=== PATIENT | male | born 1965 | race Caucasian/White ===

== ENCOUNTER 2024-05-09 18:21 | Emergency (ER) | payer BC, SELFPAY ==
--- NOTE | 2024-05-09 18:53 | CRLHL7_ITS ---
For Patients: As a result of the Century Cures Act, medical imaging exams and procedure reports are released immediately into your electronic medical record. You may view this report before your referring provider. If you have questions, please contact your health care provider. INDICATION: Chest tightness TECHNIQUE: Chest 2 views. COMPARISON: None. FINDINGS/IMPRESSION: No focal consolidation, effusion or pneumothorax. Cardiac size is within normal limit without pulmonary edema. No acute osseous abnormality. Dictated by Keith Cornejo MD @ 05/09/2024 7:38:55 PM (Electronically Signed)
[2024-05-09 19:08] VITALS: BP 153/84; PULSE 94; RESP 16; TEMP 36.2; O2SAT 98; BMI 29.4
--- OUTSIDE RECORDS SUMMARY | 2024-05-09 20:22 | XMS_ITS | Referral Summary ---
Author Organization [place] Address Formerly [facility] [place] [address] Care Team Providers Care Sample Finisher Name Role Phone Lon Kirk PA-C Unavailable [phone] Lon Kirk PA-C Primary Care Provider [phone] Cristina Goel OD Unavailable Cristina Goel OD Unavailable [phone] Encounters Date Type Department Care Team Description 04/11/2024 Travel 04/11/2024 11:30 AM PMO CONSULTANT Office Visit [address] [place] [address] Cristina Goel, ALEX Type 2 diabetes mellitus without retinopathy (H) (Primary Dx); Type 2 diabetes mellitus with diabetic polyneuropathy, without long-term current use of insulin (H); Meibomian gland dysfunction; Hyperopia of both eyes with astigmatism; Presbyopia from Last 3 Months Allergies Active Allergy Reactions Criticality Noted Date Comments No Known Drug Allergy 10/10/2007 Medications blood glucose monitoring (ARTHUR CONTOUR NEXT MONITOR) meter device kitIndications:T ype 2 diabetes mellitus with diabetic polyneuropathy, unspecified jail insulin use status Use to test blood sugar 2-3 times daily or as directed. Ok to substitute alternative if insurance prefers. 1 kit 8 Active blood glucose monitoring (ARTHUR MICROLET) lancetsIndicatio ns:Type 2 diabetes mellitus with diabetic polyneuropathy, unspecified jail insulin use status Use to test blood sugar 2 times daily or as directed. Ok to substitute alternative if insurance prefers. 100 each 11 8 Active aspirin (ASA) 81 MG tablet Take 1 tablet (81 mg) by mouth daily 9 Active blood glucose (ARTHUR CONTOUR NEXT) test stripIndications :Type 2 diabetes mellitus with diabetic polyneuropathy, without long-term current use of insulin (H) Use to test blood sugar 2-3 times daily or as directed. Ok to substitute alternative if insurance prefers. 100 strip 3 9 Active atorvastatin (LIPITOR) 10 MG tabletIndication s:Type 2 diabetes mellitus with diabetic polyneuropathy, without long-term current use of insulin (H),Hyperlipidem ia LDL goal <100 Take 1 tablet (10 mg) by mouth daily 90 tablet 3 4 Active losartan (COZAAR) 100 MG tabletIndication s:Hypertension goal BP (blood pressure) < 140/90 Take 1 tablet (100 mg) by mouth daily 90 tablet 3 4 Active metFORMIN (GLUCOPHAGE XR) 500 MG 24 hr tabletIndication s:Type 2 diabetes mellitus with diabetic polyneuropathy, without long-term current use of insulin (H) TAKE 2 TABLETS(1000 MG) BY MOUTH TWICE DAILY WITH MEALS 360 tablet 4 Active Active Problems Problem Noted Date Diagnosed Date Hyperlipidemia LDL goal <100 10/24/2018 Hypertension goal BP (blood pressure) < 140/90 0 08/24/2018 Type 2 diabetes mellitus with diabetic polyneuro jakob 06/08/2017 CARDIOVASCULAR SCREENING; LDL GOAL LESS THAN 160 06/07/2017 Family history of ischemic heart disease 018 Immunizations Name Administration Dates Next Due COVID-19 12+ (Pfizer) 05/01/2023 COVID-19 Bivalent 12+ (Pfizer) 05/10/2022 COVID-19 MONOVALENT 12+ (Pfizer) 08/11/2020,06/24 Hepatitis B, Adult 05/01/2023 Influenza Vaccine 18-64 (Flublok) 2022,01/04/2021,02/11/2019,2017 Influenza Vaccine >6 months,quad, PF 06/06/2017, 02/24/2010,02/01/2008 Pneumococcal 20 valent Conju gate (Prevnar 20) 05/01/2023 Pneumococcal 23 valent 01/04/2021 TD,PF 7+ (Tenivac) 04/25/1999 TDAP Vaccine (Adacel) 10/18/2019,02/24/2010 Social History Tobacco Use Types Packs/Day Years Used Date Smoking Tobacco: Never Smokeless Tobacco: Former Chew Quit: 05/14/2022 Tobacco Cessation:Counseling Given: Not Answered Alcohol Use Standard Drinks/Week Comments Yes 0 (1 standard drink = 0.6 oz pure alcohol) social. no alcohol in house; 3 beers with sports. PHQ-2 Answer Date Recorded PHQ-2 Score 0 05/01/2023 Adolescent Education Answer Date Record ed Getting School Help Needed Not on file 02/06 Food Insecurity Answer Date Recorded Within the past 12 months, d id you worry that your food would run out before you got money to buy more? No 05/01/2023 Within the past 12 months, d id the food you bought just not last and you didn t have money to get more? No 05/01/2023 Housing Stability Answer Date Recorded Do you have housing? (Housin g is defined as stable permanent housing and does not include staying ouside in a car, in a tent, in an abandoned building, in an overnight prison, or couch-surfing.) Yes 05/01/2023 Are you worried about losing your housing? No 05/01/2023 Financial Resource Strain Answer Date R ecorded Within the past 12 months, h ave you or your family members you live with been unable to get utilities (heat, electricity) when it was really needed? No 05/01/2023 Transportation Needs Answer Date Record ed Within the past 12 months, h as lack of transportation kept you from medical appointments, getting your medicines, non-medical meetings or appointments, work, or from getting things that you need? No 05/01/2023 Interpersonal Safety Answer Date Record ed Do you feel physically and e motionally safe where you currently live? Yes 05/01/2023 Within the past 12 months, h ave you been hit, slapped, kicked or otherwise physically hurt by someone? No 05/01/2023 Within the past 12 months, h ave you been humiliated or emotionally abused in other ways by your partner or ex-partner? No 05/01/2023 Sex and Gender Information Value Date Recorded Sex Assigned at Male 12/30/2021 8:08 AM CDT Legal Sex Male 3:36 AM PMO CONSULTANT Gender Identity Male 01/01/2021 4:50 PM CDT Sexual Orientation Straight 01/01/2021 4: 50 PM CDT Last Filed Vital Signs Vital Sign Reading Time Taken Comments Blood Pressure 133/88 05/01/2023 10:47 AM PMO CONSULTANT Pulse 80 05/01/2023 10:47 AM PMO CONSULTANT Temperature 36.7 C (98 F) 05/01/2023 10:47 AM PMO CONSULTANT Respiratory Rate 22 05/01/2023 10:4 7 AM PMO CONSULTANT Oxygen Saturation 99% 05/01/2023 10: 47 AM PMO CONSULTANT Inhaled Oxygen Concentration - - Weight 110.6 kg (243 lb 14.4 oz) 2023 10:47 AM PMO CONSULTANT Height 190.5 cm (6' 3) 05/01/2023 10:4 7 AM PMO CONSULTANT Body Mass Index 30.49 05/01/2023 10:47 AM PMO CONSULTANT Plan of Treatment Not on file Procedures Procedure Name Priority Date/Time Associated Diagnosis Comments FL REFRACTION Routine 04/11/2024 12:07 PM PMO CONSULTANT Hyperopia of both eyes with astigmatism Presbyopia EYE EXAM (SIMPLE-NONBILLABLE) Routine 04/11/2024 12:07 PM PMO CONSULTANT Type 2 diabetes mellitus with diabetic polyneuropathy, without long-term current use of insulin (H) Type 2 diabetes mellitus without retinopathy (H) ALBUMIN RANDOM URINE QUANTITATIVE Routine 05/01/2023 11:29 AM PMO CONSULTANT Type 2 diabetes mellitus with diabetic polyneuropathy, without long-term current use of insulin (H) LIPID REFLEX TO DIRECT LDL PANEL Routine 05/01/2023 11:19 AM PMO CONSULTANT Type 2 diabetes mellitus with diabetic polyneuropathy, without long-term current use of insulin (H) BASIC METABOLIC PANEL Routine 05/01/2023 11:19 AM PMO CONSULTANT Type 2 diabetes mellitus with diabetic polyneuropathy, without long-term current use of insulin (H) HEMOGLOBIN A1C Routine 05/01/2023 11:19 AM PMO CONSULTANT Type 2 diabetes mellitus with diabetic polyneuropathy, without long-term current use of insulin (H) HEPATITIS C SCREEN REFLEX TO HCV RNA QUANT AND GENOTYPE Routine 01/04/2021 10:41 AM CDT Need for hepatitis C screening test HIV ANTIGEN ANTIBODY COMBO Routine 04/02/2018 9:01 AM PMO CONSULTANT Encounter for screening for HIV COLONOSCOPY Routine 07/06/2017 10:07 AM CDT from Last 3 Months or Most Recently Relevant to Health Maintenance Results * Albumin Random Urine Quantitative with Creat Ratio (05/01/2023 11:29 AM PMO CONSULTANT) Creatinine Urine mg/dL 196.0 mg/dL 05/02/2023 1:28 AM PMO CONSULTANT [facility] Comment:The reference ranges have not been established in urine creatinine. The results should be integrated into the clinical context for interpretation. Albumin Urine mg/L <12.0 mg/L 2023 1:28 AM PMO CONSULTANT [facility] Comment:The reference ranges have not been established in urine albumin. The results should be integrated into the clinical context for interpretation. Albumin Urine mg/g Cr 05/02/2023 1:28 AM PMO CONSULTANT [facility] Comment: Unable to calculate, urine albumin and/or urine creatinine is outside detectable limits. Microalbuminuria is defined as an albumin:creatinine ratio of 17 to 299 for males and 25 to 299 for females. A ratio of albumin:creatinine of 300 or higher is indicative of overt proteinuria. Due to biologic variability, positive results should be confirmed by a second, first-morning random or 24-hour timed urine specimen. If there is discrepancy, a third specimen is recommended. When 2 out of 3 results are in the microalbuminuria range, this is evidence for incipient nephropathy and warrants increased efforts at glucose control, blood pressure control, and institution of therapy with an bzrdlmhatqg-khkqtsbiof-nrxfoq (KAYLEEN) inhibitor (if the patient can tolerate it). Urine URINE SPECIMEN / Unknown Non-blood Collection / Unknown 05/01/2023 11:29 AM PMO CONSULTANT 05/01/2023 11:29 AM PMO CONSULTANT us Lon Kirk PA-C LAB - URINE ORDERABLES Final R esult [facility] [place] [facility] [address] [facility] [address], [address] [place] [address], [facility] [phone] * Lipid panel reflex to direct LDL Fasting (05/01/2023 11:19 AM PMO CONSULTANT) Cholesterol 189 <200 mg/dL 05/01/2023 9:52 PM PMO CONSULTANT [facility] Triglycerides 61 <150 mg/dL 05/01/2023 9:52 PM PMO CONSULTANT [facility] Direct Measure HDL 86 >=40 mg/dL 2023 9:52 PM PMO CONSULTANT [facility] LDL Cholesterol Calculated 91 <=100 mg/dL 05/01/2023 9:52 PM PMO CONSULTANT [facility] Non HDL Cholesterol 103 <130 mg/dL 05/01/2023 9:52 PM PMO CONSULTANT [facility] Patient Fasting > 8hrs? Yes 05/01/2023 9:52 PM PMO CONSULTANT [facility] Blood BLOOD SPECIMEN / Unknown Venipuncture / Unknown 05/01/2023 11:19 AM PMO CONSULTANT 05/01/2023 11:19 AM PMO CONSULTANT Narrative [facility] - 05/01/2023 9:52 PM PMO CONSULTANT Cholesterol Desirable: <200 mg/dL Triglycerides Normal: Less than 150 mg/dL Borderline High: 150-199 mg/dL High: 200-499 mg/dL Very High: Greater than or equal to 500 mg/dL Direct Measure HDL Female: Greater than or equal to 50 mg/dL Male: Greater than or equal to 40 mg/dL LDL Cholesterol Desirable: <100mg/dL Above Desirable: 100-129 mg/dL Borderline High: 130-159 mg/dL High: 160-189 mg/dL Very High: >= 190 mg/dL Non HDL Cholesterol Desirable: 130 mg/dL Above Desirable: 130-159 mg/dL Borderline High: 160-189 mg/dL High: 190-219 mg/dL Very High: Greater than or equal to 220 mg/dL us Lon Kirk PA-C LAB - BLOOD ORDERABLES Final R esult [facility] [place] [facility] [address] [facility] [address], [address] [place] [address] [phone] * (ABNORMAL) Hemoglobin A1c (05/01/2023 11:19 AM PMO CONSULTANT) Hemoglobin A1C 6.7(H) 0.0 - 5.6 % 05/01/2023 11:30 AM PMO CONSULTANT [facility] Comment: Normal <5.7% Prediabetes 5.7-6.4% Diabetes 6.5% or higher Note: Adopted from ADA consensus guidelines. Blood BLOOD SPECIMEN / Unknown Venipuncture / Unknown 05/01/2023 11:19 AM PMO CONSULTANT 05/01/2023 11:19 AM PMO CONSULTANT us Lon Kirk PA-C LAB - BLOOD ORDERABLES Final R esult [facility] [place] [facility] [address] [facility] (no room number, 1st floor of clinic) [place] [address] [phone] * (ABNORMAL) BASIC METABOLIC PANEL (05/01/2023 11:19 AM PMO CONSULTANT) Sodium 139 135 - 145 mmol/L 05/01/2023 9:52 PM PMO CONSULTANT [facility] Comment:Reference intervals for this test were updated on 01/17/2023 to more accurately reflect our healthy population. There may be differences in the flagging of prior results with similar values performed with this method. Interpretation of those prior results can be made in the context of the updated reference intervals. Potassium 4.4 3.4 - 5.3 mmol/L 05/01/2023 9:52 PM PMO CONSULTANT [facility] Chloride 101 98 - 107 mmol/L 05/01/2023 9:52 PM PMO CONSULTANT [facility] Carbon Dioxide (CO2) 27 22 - 29 mmol/L 05/01/2023 9:52 PM PMO CONSULTANT [facility] Anion Gap 11 7 - 15 mmol/L 05/01/2023 9:52 PM PMO CONSULTANT [facility] Urea Nitrogen 17.5 6.0 - 20.0 mg/dL 05/01/2023 9:52 PM PMO CONSULTANT [facility] Creatinine 0.89 0.67 - 1.17 mg/dL 05/01/2023 9:52 PM PMO CONSULTANT [facility] GFR Estimate >90 >60 mL/min/1. 73m2 05/01/2023 9:52 PM PMO CONSULTANT [facility] Calcium 9.6 8.6 - 10.0 mg/dL 05/01/2023 9:52 PM PMO CONSULTANT [facility] Glucose 152(H) 70 - 99 mg/dL 05/01/2023 9:52 PM PMO CONSULTANT [facility] Blood BLOOD SPECIMEN / Unknown Venipuncture / Unknown 05/01/2023 11:19 AM PMO CONSULTANT 05/01/2023 11:19 AM PMO CONSULTANT Lon Kirk PA-C LAB - BLOOD ORDERABLES Final R esult [facility]ATORY [facility] [place] [facility] [address] [facility], [address] [place] [address], [place] [phone] * Hepatitis C Screen Reflex to HCV RNA Quant and Genotype (01/04/2021 10:41 AM CDT) Hepatitis C Antibody Nonreactive Nonreactive 01/05/2021 11:33 AM CDT [facility] Blood STRUCTURE OF RIGHT UPPER LIMB / Unknown Venipuncture / Unknown 01/04/2021 10:41 AM CDT 01/04/2021 10:41 AM CDT Narrative [facility] - 01/05/2021 11:33 AM CDT Assay performance characteristics have not been established for newborns, infants, and children. Lon Kirk PA-C LAB - BLOOD ORDERABLES Final R esult [facility] [address] [facility], [address] [place] [address], [place] [phone] * HIV Antigen Antibody Combo (04/02/2018 9:01 AM PMO CONSULTANT) HIV Antigen Antibody Combo Nonreactive NR^Nonrea ctive 04/02/2018 10:18 PM PMO CONSULTANT [facility] Comment:HIV-1 p24 Ag & HIV-1 /HIV-2 Ab Not Detected Blood specimen (specimen) 04/02/2018 9:01 AM PMO CONSULTANT 04/02/2018 9:02 AM PMO CONSULTANT us Kassandra Diaz MD LAB - BLOOD ORDERABLES Final Res ult [facility] [address] [place] [address] * COLONOSCOPY (07/06/2017 10:07 AM CDT) COLONOSCOPY [facility] Patient Name: Kaiden Joel Long Procedure Date: 07/06/2017 10:07 AM Date of : 1965 Admit Type: Outpatient Age: 52 Gender: Male Attending MD: Jonny Lal MD Total Sedation Time: __16___minutes continuous bedside 1:1 Instrument Name: 133 Procedure: Colonoscopy Indications: Screening for colorectal malignant neoplasm Providers: Jonny Lal MD (Doctor) Referring MD: Kassandra Diaz MD (Referring MD) Medicines: Midazolam 3 mg IV, Fentanyl 150 micrograms IV Complications: No immediate complications. Procedure: Pre-Anesthesia Assessment: - Prior to the procedure, a History and Physical was performed, and patient medications and allergies were reviewed. The patient is competent. The risks and benefits of the procedure and the sedation options and risks were discussed with the patient. All questions were answered and informed consent was obtained. Patient identification and proposed procedure were verified by the physician in the procedure room. Mental Status Examination: alert and oriented. Airway Examination: normal oropharyngeal airway and neck mobility. Respiratory Examination: clear to auscultation. CV Examination: normal. Prophylactic Antibiotics: The patient does not require prophylactic antibiotics. Prior Anticoagulants: The patient has taken no previous anticoagulant or antiplatelet agents. ASA Grade Assessment: I - A normal, healthy patient. After reviewing the risks and benefits, the patient was deemed in satisfactory condition to undergo the procedure. The anesthesia plan was to use moderate sedation / analgesia (conscious sedation). Immediately prior to administration of medications, the patient was re-assessed for adequacy to receive sedatives. The heart rate, respiratory rate, oxygen saturations, blood pressure, adequacy of pulmonary ventilation, and response to care were monitored throughout the procedure. The physical status of the patient was re-assessed after the procedure. After obtaining informed consent, the colonoscope was passed under direct vision. Throughout the procedure, the patient's blood pressure, pulse, and oxygen saturations were monitored continuously. The Olympus Peds Colonoscope Model #[id number]-H190L, [place]#[id number], SN#[id number] was introduced through the anus and advanced to the cecum, identified by appendiceal orifice and ileocecal valve. The colonoscopy was performed without difficulty. The patient tolerated the procedure well. The quality of the bowel preparation was good. Findings: The perianal and digital rectal examinations were normal. The entire examined colon appeared normal on direct and retroflexion views. Impression: - The entire examined colon is normal on direct and retroflexion views. - No specimens collected. Recommendation: - Repeat colonoscopy in 10 years for screening purposes. Procedure Code(s): --- Professional --- G0121, Colorectal cancer screening; colonoscopy on individual not meeting criteria for high risk Diagnosis Code(s): --- Professional --- Z12.11, Encounter for screening for malignant neoplasm of colon CPT copyright 2016 [employer]. All rights reserved. The codes documented in this report are preliminary and upon patent litigation associate review may be revised to meet current compliance requirements. Electronically signed by Jonny Lal MD __ Jonny Lal MD 07/06/2017 10:45:06 AM I was physically present for the entire viewing portion of the exam. Jonny Lal MD Number of Addenda: 0 Note Initiated On: 07/06/2017 10:07 AM Procedure Date: 07/06/2017 10:07:54 AM Scope Withdrawal Time: 0 hours 7 minutes 20 seconds Total Procedure Duration: 0 hours 12 minutes 27 seconds Estimated Blood Loss: Scope In: 10:29:35 AM Scope Out: 10:42:02 AM RADIOLOGY RESULTS 07/06/2017 10:0 7 AM CDT Kassandra Diaz MD PROCEDURES Final Result RADIOLOGY RESULTS from Last 3 Months or Most Recently Relevant to Health Maintenance Insurance [employer] [facility] [employer] [facility] * Guarantor: Kaiden Alves Account Type Relation to Patient Date of Phone Billing Address Medication Therapy Self 1965 [id number] [place] [id number] Care Teams Sample Finisher Relationship Specialty Start Date End Date Lon Kirk PA-C [address] [place] [address] PCP - General Physician Lacing Cutter 09/23/19 Lon Kirk PA-C [address] [place] [address] Assigned PCP 03/31/19 Cristina Goel OD [address] [place] [address] [place] [address] MD Ophthalmology 02/12/24 [place] [address] [place] [address] [place] [address] Assigned Surgical Provider 04/15/24
--- OUTSIDE RECORDS SUMMARY | 2024-05-09 20:22 | XMS_ITS | Encounter Summary ---
Author Organization [place] Address [address] [place] [address]. [place] [address] Care Team Providers Care Box Office Manager Name Role Phone Lon Kirk PA-C Unavailable [phone] Lon Kirk PA-C Primary Care Provider [phone] Albino Lou PA-C Unavailable [phone] Ortiz Carvajal MD Unavailable + [phone] Albino Lou PA-C Unavailable [phone] Cristina Goel OD Unavailable [phone] Cristina Goel OD Unavailable [phone] Encounter Details Date Type Department Care Team (Late st Contact Info) Description 12/20/2021 [facility] Medical Advice [address] [address] Karen Leija Social History Tobacco Use Types Packs/Day Years Used Date Smoking Tobacco: Never Smokeless Tobacco: Current Chew Alcohol Use Standard Drinks/Week Comments Yes 0 (1 standard drink = 0.6 oz pure alcohol) social. no alcohol in house; 3 beers with sports. 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 Gender Identity Male 01/01/2021 4:50 PM CDT Sexual Orientation Straight 01/01/2021 4: 50 PM CDT documented as of this encounter Plan of Treatment Not on file documented as of this encounter Visit Diagnoses Not on filedocumented in this encounter Care Teams Box Office Manager Relationship Specialty Start Date End Date Lon Kirk PA-C [address] [place] [address] PCP - General Physician Sales Donor Recruitment Representative 09/23/19 Lon Kirk PA-C [address] [address] [place] [address] Assigned PCP 03/31/19 Albino Lou PA-C [address] [place] [address] Assigned Musculoskeletal Provider 06/25/22 05/17/23 Ortiz Carvajal MD [address] [place] [address] Assigned Heart and Vascular Provider 06/25/22 12/14/23 Albino Lou PA-C [address] [place] [address] Assigned Neuroscience Provider 05/18/23 01/14/24 Cristina Goel OD [address] [place] [address] [place] [address] Ophthalmology 02/12/24 Cristina Goel OD [address] [place] [address] [place] [address] Assigned Surgical Provider 04/15/24 documented as of this encounter
--- OUTSIDE RECORDS SUMMARY | 2024-05-09 20:22 | XMS_ITS | Encounter Summary ---
Author Organization [place] Address [address] [place] [address]. [place] [address] Care Team Providers Care Rn Concurrent Review Name Role Phone Lon Kirk PA-C Unavailable [phone] Lon Kirk PA-C Primary Care Provider [phone] Cristina Goel OD Unavailable [phone] Albino Lou PA-C Unavailable [phone] Ortiz Carvajal MD Unavailable + [phone] Albino Lou PA-C Unavailable [phone] Cristina Goel OD Unavailable [phone] Cristina Goel OD Unavailable [phone] Encounter Details Date Type Department Care Team (Late st Contact Info) Description 09/03/2020 [facility] Medical Advice [address] [address] Kim Kessler Social History Tobacco Use Types Packs/Day Years [...] AM CDT 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 Gender Identity Male 01/01/2021 4:50 PM CDT Sexual Orientation Straight 01/01/2021 4: 50 PM CDT documented as of this encounter Plan of Treatment Not on file documented as of this encounter Visit Diagnoses Not on filedocumented in this encounter Care Teams Rn Concurrent Review Relationship Specialty Start Date End Date Lon Kirk PA-C [address] [place] [address] PCP - General Physician Drug Abuse Social Worker 09/23/19 Lon Kirk PA-C [address] [address] [address] Assigned PCP 03/31/19 Cristina Goel OD [address] [place] [address] [place] [address] Assigned Surgical Provider 03/14/21 09/17/21 Albino Lou PA-C [address] [place] [address] Assigned Musculoskeletal Provider 06/25/22 05/17/23 Ortiz Carvajal MD [address] [place] [address] Assigned Heart and Vascular Provider 06/25/22 12/14/23 Albino Lou PA-C [address] [place] [address] Assigned Neuroscience Provider 05/18/23 01/14/24 Cristina Goel OD [address] [place] [address] [place] [address] Ophthalmology 02/12/24 Cristina Goel OD [address] [facility] [address], [place] [address] Assigned Surgical Provider 04/15/24 documented as of this encounter
--- OUTSIDE RECORDS SUMMARY | 2024-05-09 20:22 | XMS_ITS | Encounter Summary ---
Author Organization [place] Address [address] [place] [place] [address] Care Team Providers Care Mule Driver Name Role Phone Lon Kirk PA-C Unavailable [phone] Lon Kirk PA-C Primary Care Provider [phone] Cristina Goel OD Unavailable [phone] Encounter Details Date Type Department Care Team (Latest Contact Info) Description 04/11/2024 Travel Social History Tobacco Use Types Packs/Day Years Used Date Smoking Tobacco: Never Smokeless Tobacco: Former Chew Quit: 05/14/2022 Alcohol Use Standard Drinks/Week Comments Yes 0 [...] Answer Date Recorded Do you have housing? 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
--- OUTSIDE RECORDS SUMMARY | 2024-05-09 20:22 | XMS_ITS | Encounter Summary ---
Author Organization [place] Address [address] [facility] [place] [address] Care Team Providers Care Computer Game Tester Name Role Phone Lon Kirk PA-C Unavailable [phone] Lon Kirk PA-C Primary Care Provider [phone] Albino Lou PA-C Unavailable [phone] Ortiz Carvajal MD Unavailable + [phone] Albino Lou PA-C Unavailable [phone] Cristina Goel OD Unavailable [phone] Cristina Goel OD Unavailable [phone] Reason for Visit * Reason Comments Medication Refill Encounter Details Date Type Department Care Team (Late st Contact Info) Description 02/25/2023 Refill [facility] [address] [place] [address] Lon Kirk PA-C [address] [place] [address] Medication Refill Social History Tobacco Use Types Packs/Day Years Used Date Smoking Tobacco: Never Smokeless Tobacco: Former Chew Quit: 05/14/2022 Alcohol Use Standard Drinks/Week Comments Yes 0 (1 standard drink = 0.6 oz pure alcohol) social. no alcohol in house; 3 beers with sports. PHQ-2 Answer Date Recorded PHQ-2 Score 0 05/10/2022 Adolescent Education Answer Date Record ed Getting School Help Needed Not on file 02/06 Sex and Gender Information Value Date Recorded Sex Assigned at Male 12/30/2021 8:08 AM CDT Legal Sex Male 3:36 AM ACID PLANT HELPER Gender Identity Male 01/01/2021 4:50 PM CDT Sexual Orientation Straight 01/01/2021 4: 50 PM CDT documented as of this encounter Miscellaneous Notes * Telephone Encounter - Kassandra Armstrong RN - 02/27/2023 3:05 PM ACID PLANT HELPER Last refill, DM APPOINTMENT DUE, INFORM PT PLANT HELPER documented in this encounter Plan of Treatment Not on file documented as of this encounter Visit Diagnoses Diagnosis Hypertension goal BP (blood pressure) < 140/90 Unspecified essential hypertension Type 2 diabetes mellitus with diabetic polyneuropathy, without long-term current use of insulin (H) documented in this encounter Care Teams Computer Game Tester Relationship Specialty Start Date End Date Lon Kirk PA-C [address] [place] [address] PCP - General Physician Mixing Plant Dumper 09/23/19 Lon Kirk PA-C [address]687 [place] [address] Assigned PCP 03/31/19 Albino Lou PA-C [address] [place] [address] Assigned Musculoskeletal Provider 06/25/22 05/17/23 Ortiz Carvajal MD [address] [place] [address] Assigned Heart and Vascular Provider 06/25/22 12/14/23 Albino Lou PA-C [address] [place] [address] Assigned Neuroscience Provider 05/18/23 01/14/24 Cristina Goel OD [address] [facility] [place] [address] MD Ophthalmology 02/12/24 Cristina Goel OD [address] [facility] [place] [address] Assigned Surgical Provider 04/15/24 documented as of this encounter
--- OUTSIDE RECORDS SUMMARY | 2024-05-09 20:22 | XMS_ITS | Encounter Summary ---
Author Organization [place] Address [address] [facility] [place] [address] Care Team Providers Care Press Tender Smoke Signal Name Role Phone Lon Kirk PA-C Unavailable [phone] Lon Kirk PA-C Primary Care Provider [phone] Cristina Goel OD Unavailable [phone] Reason for Visit * Reason Comments Diabetic Eye Exam * Consultation (Routine: Next available opening) - Pending Review Specialty Diagnoses / Procedures Referred By Otto moreno Referred To Contact Ophthalmology Diagnoses Type 2 diabetes mellitus with diabetic polyneuropathy, without long-term current use of insulin (H) Lon Kirk PA-C [address] [place] [address] Phone: tel: fax: Referral ID Status Reason Start Date Expiration Date V isits Requested Visits Authorized [id number] Pending Review 12/15/2023 12/14/2024 1 1 Encounter Details Date Type Department Care Team (Late st Contact Info) Description 04/11/2024 11:30 AM GARMENT FOLDER Office Visit [facility] [address] [facility] [address] [place] [address] Cristina Goel, OD [address] [facility] [place] [address] Type 2 diabetes mellitus without retinopathy (H) (Primary Dx); Type 2 diabetes mellitus with diabetic polyneuropathy, without long-term current use of insulin (H); Meibomian gland dysfunction; Hyperopia of both eyes with astigmatism; Presbyopia Social History Tobacco Use Types Packs/Day Years [...] Answer Date Recorded Do you have housing? (Miguel jo is defined as stable permanent housing and does not include staying ouside in a car, in a tent, in an abandoned building, in an overnight assisted, or couch-surfing.) Yes 05/01/2023 Are you worried [...] AM CDT Legal Sex Male 3:36 AM GARMENT FOLDER Gender Identity Male 01/01/2021 4:50 PM CDT Sexual Orientation Straight 01/01/2021 4: 50 PM CDT documented as of this encounter Patient Instructions * Patient Instructions* Cristina Goel, OD - 04/11/2024 11:30 AM GARMENT FOLDER Patient Education Diabetes weakens the blood vessels all over the body, including the eyes. Damage to the blood vessels in the eyes can cause swelling or bleeding into part of the eye (called the retina). This is called diabetic retinopathy (XGP-xen-XZ-puh-thee). If not treated, this disease can cause vision loss or blindness. Symptoms may include blurred or distorted vision, but many people have no symptoms. It's important to see your eye doctor regularly to check for problems. Early treatment and good control can help protect your vision. Here are the things you can do to help prevent vision loss: 1. Keep your blood sugar levels under tight control. 2. Bring high blood pressure under control. 3. No smoking. 4. Have yearly dilated eye exams. Meibomian gland dysfunction or Posterior Blepharitis, is characterized by inflammation along both the uppper and lower eyelid margins. A single row of these glands is present in each lid with openings along the lid margins. It is often found in association with skin conditions such as rosacea and seborrheic dermatitis. Symptoms include: ?Red eyes ?Gritty or burning sensation ?Excessive tearing ?Itchy eyelids ?Red, swollen eyelids ?Crusting or matting of eyelashes in the morning ?Light sensitivity ?Blurred vision It is important to keep cosmetics from blocking these oil glands. If blocked, they do not excrete oil into the tear film, which causes the tears to evaporate quickly. This may result in watery eyes. There is also an increase of bacterial growth when the tear film is unstable, leading to further ocular surface inflammation. Treatment: 1. Warm compresses for 5-10 minutes twice daily 2. Keep the eyelid margins clean by using a commercial eye scrub or mild baby shampoo on a washcloth 1-2x daily 3. Use preservative free artificial tears 4-8x daily For warm compresses Moisten a washcloth with hot water, or microwave for 10 seconds, being careful to not get the clothtoo hot. Then put the washcloth onto your eyelids for 5 minutes. It will cool quickly so a rice pack or eyemask that can be heated and laid on top of the washcloth will help retain the heat. [place] 3 fatty acid supplements taken once to twice daily and artificial tears such as Soothe xp, Refresh optive , Retaine and systane balance are also an additional treatment to control inflammation and help soothe your eyes. Slight distance prescription Recommend no line bifocals ENT FOLDER ENT FOLDER * Attachments The following attachments cannot be sent through Care Everywhere. * Diabetic Retinopathy (Puerto Rican) * Presbyopia (Pu[place]ican) documented in this encounter Progress Notes * Cristina Goel, OD - 04/11/2024 11:30 AM CST Chief Complaint Patient presents with Diabetic Eye Exam Lab Results Component Value Date A1C 6.7 05/01/2023 A1C 6.4 03/08/2023 A1C 9.1 08/08/2022 A1C 8.5 05/10/2022 A1C 6.2 01/04/2021 A1C 5.8 01/07/2020 A1C 8.7 09/24/2019 A1C 6.2 02/11/2019 A1C 7.1 08/23/2018 A1C 6.0 02/22/2018 Pt states eyes feel off and does not know how to explain it Last Eye Exam: 2019 Dilated Previously: Yes, side effects of dilation explained today What are you currently using to see? readers Distance Vision Acuity: Satisfied with vision Near Vision Acuity: Satisfied with vision while reading and using computer with readers Eye Comfort: good Do you use eye drops? : No Miley Pagan - Lens Generating Machine Tender Medical, surgical and family histories reviewed and updated 04/11/2024. OBJECTIVE: See Ophthalmology exam ASSESSMENT: ICD-10-CM 1. Type 2 diabetes mellitus without retinopathy (H) E11.9 EYE EXAM (SIMPLE-NONBILLABLE) 2. Type 2 diabetes mellitus with diabetic polyneuropathy, without long-term current use of insulin (H) E11.42 Adult Eye Assisted Living Assistant Referral EYE EXAM (SIMPLE-NONBILLABLE) 3. Meibomian gland dysfunction H02.889 4. Hyperopia of both eyes with astigmatism H52.03 REFRACTION H52.203 5. Presbyopia H52.4 REFRACTION PLAN: Ongoing glucose control Warm compresses/ artificial tears as needed Progressive addition lens Kaiden Jonny Alves aware eye exam results will be sent to Lon Kirk. Cristina Goel OD ENT FOLDER documented in this encounter Plan of Treatment Not on file documented as of this encounter Procedures Procedure Name Priority Date/Time Associated Diagnosis Comments CA REFRACTION Routine 04/11/2024 12:07 PM GARMENT FOLDER Hyperopia of both eyes with astigmatism Presbyopia EYE EXAM (SIMPLE-NONBILLABLE) Routine 04/11/2024 12:07 PM GARMENT FOLDER Type 2 diabetes mellitus with diabetic polyneuropathy, without long-term current use of insulin (H) Type 2 diabetes mellitus without retinopathy (H) documented in this encounter Visit Diagnoses Diagnosis Type 2 diabetes mellitus without retinopathy (H)- Primary Type II or unspecified type diabetes mellitus without mention of complication, not stated as uncontrolled Type 2 diabetes mellitus with diabetic polyneuropathy, without long-term current use of insulin (H) Meibomian gland dysfunction Other disorders of eyelid Hyperopia of both eyes with astigmatism Presbyopia documented in this encounter Care Teams Press Tender Smoke Signal Relationship Specialty Start Date End Date Lon Kirk PA-C [address] [place] [address] PCP - General Physician Decision Analyst 09/23/19 Lon Kirk PA-C [address]1813 [place] [address] Assigned PCP 03/31/19 Cristina Goel, OD [address] [place] [address] [place] BAD[place]O [address] Ophthalmology 02/12/24 documented as of this encounter
--- OUTSIDE RECORDS SUMMARY | 2024-05-09 20:22 | XMS_ITS | Encounter Summary ---
Author Organization [place] Address [address] [place] [address]. [place] [address] Care Team Providers Care Payroll Assistant Name Role Phone Lon Kirk PA-C Unavailable [phone] Lon Kirk PA-C Primary Care Provider [phone] Cristina Goel OD Unavailable [phone] Albino Lou PA-C Unavailable [phone] Ortiz Carvajal MD Unavailable + [phone] Albino Lou PA-C Unavailable [phone] Cristina Goel OD Unavailable Cristina Goel OD Unavailable [phone] Encounter Details Date Type Department Care Team (Late st Contact Info) Description 08/12/2020 Documentation Only INTERFACED REPORT Unknown, Provider Social History Tobacco Use Types Packs/Day Years [...] AM CDT 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 Gender Identity Male 01/01/2021 4:50 PM CDT Sexual Orientation Straight 01/01/2021 4: 50 PM CDT documented as of this encounter Plan of Treatment Not on file documented as of this encounter Visit Diagnoses Not on filedocumented in this encounter Care Teams Payroll Assistant Relationship Specialty Start Date End Date Lon Kirk PA-C [address] [place] [address] PCP - General Physician Flame Burner 09/23/19 Lon Kirk PA-C [address] [place] [address] Assigned PCP 03/31/19 Cristina Goel OD [address] [place] [address] [place] [address] Assigned Surgical Provider 03/14/21 09/17/21 Albino Lou PA-C [address] [place] [address] Assigned Musculoskeletal Provider 06/25/22 05/17/23 Ortiz Carvajal MD [address] [place] [address] Assigned Heart and Vascular Provider 06/25/22 12/14/23 Albino Lou PA-C [address] [place] [address] Assigned Neuroscience Provider 05/18/23 01/14/24 Cristina Goel OD [address] [place] [address] [place] [address] Ophthalmology 02/12/24 Cristina Goel OD [address] [place] [address] [place] [address] Assigned Surgical Provider 04/15/24 documented as of this encounter
--- OUTSIDE RECORDS SUMMARY | 2024-05-09 20:22 | XMS_ITS | Encounter Summary ---
Author Organization [place] Address [address] [place] [address]. [place] [address] Care Team Providers Care Handle Rounder Operator Name Role Phone Lon Kirk PA-C Unavailable [phone] Lon Kirk PA-C Primary Care Provider [phone] Cristina Goel OD Unavailable [phone] Albino Lou PA-C Unavailable [phone] Ortiz Carvajal MD Unavailable + [phone] Albino Lou PA-C Unavailable [phone] Cristina Goel OD Unavailable Cristina Goel OD Unavailable [phone] Encounter Details Date Type Department Care Team (Late st Contact Info) Description 07/22/2020 Documentation Only INTERFACED REPORT Unknown, Provider Social [...] AM CDT 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 Gender Identity Male 01/01/2021 4:50 PM CDT Sexual Orientation Straight 01/01/2021 4: 50 PM CDT documented as of this encounter Plan of Treatment Not on file documented as of this encounter Visit Diagnoses Not on filedocumented in this encounter Care Teams Handle Rounder Operator Relationship Specialty Start Date End Date Lon Kirk PA-C [address] [place] [address] PCP - General Physician Drill Operator Pneumatic 09/23/19 Lon Kirk PA-C [address]500[address] [place] [address] Assigned PCP 03/31/19 Cristina Goel OD [address] [place] [address] [place]AD[place] [address] Assigned Surgical Provider 03/14/21 09/17/21 Albino Lou PA-C [address] [place] [address] Assigned Musculoskeletal Provider 06/25/22 05/17/23 Ortiz Carvajal MD [address] [place] [address] Assigned Heart and Vascular Provider 06/25/22 12/14/23 Albino Lou PA-C [address] [place] [address] Assigned Neuroscience Provider 05/18/23 01/14/24 Cristina Goel OD [address] [place] [address] [place] [address] Ophthalmology 02/12/24 Cristina Goel OD [address] [place] [address] [place] BAD[place] [address] Assigned Surgical Provider 04/15/24 documented as of this encounter
--- OUTSIDE RECORDS SUMMARY | 2024-05-09 20:22 | XMS_ITS | Encounter Summary ---
Author Organization [place] Address [address] [place] [place] [address] Care Team Providers Care Packaging Sales Representative Name Role Phone Lon Kirk PA-C Unavailable [phone] Lon Kirk PA-C Primary Care Provider [phone] Cristina Goel OD Unavailable [phone] Albino Lou PA-C Unavailable [phone] Ortiz Carvajal MD Unavailable + [phone] Albino Lou PA-C Unavailable [phone] Cristina Goel OD Unavailable [phone] Cristina Goel OD Unavailable [phone] Encounter Details Date Type Department Care Team (Late st Contact Info) Description 06/28/2020 [facility] [place] [facility] [address] [place] [address] Lon Kirk PA-C [address] [place] [address] Social History Tobacco Use Types Packs/Day Years [...] AM CDT 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 Gender Identity Male 01/01/2021 4:50 PM CDT Sexual Orientation Straight 01/01/2021 4: 50 PM CDT documented as of this encounter Plan of Treatment Not on file documented as of this encounter Visit Diagnoses Not on filedocumented in this encounter Care Teams Packaging Sales Representative Relationship Specialty Start Date End Date Lon Kirk PA-C [address] [place] [address] PCP - General Physician Aluminum Boats Assembler 09/23/19 Lon Kirk PA-C [address]45[address] [place] [address] Assigned PCP 03/31/19 Cristina Goel OD [address] [place] [address] [place]AD[place] [address] Assigned Surgical Provider 03/14/21 09/17/21 Albino Lou PA-C [address] [place] [address] Assigned Musculoskeletal Provider 06/25/22 05/17/23 Ortiz Carvajal MD [address] [place] [address] Assigned Heart and Vascular Provider 06/25/22 12/14/23 Albino Lou PA-C [address] [place] [address] Assigned Neuroscience Provider 05/18/23 01/14/24 Cristina Goel OD [address] [place] [address] [place] [address] Ophthalmology 02/12/24 Cristina Goel OD [address] [facility] [place] [address] Assigned Surgical Provider 04/15/24 documented as of this encounter
--- OUTSIDE RECORDS SUMMARY | 2024-05-09 20:22 | XMS_ITS | Encounter Summary ---
Author Organization [place] Address [address] [place] [address]. [place] [address] Care Team Providers Care Planner Intern Name Role Phone Lon Kirk PA-C Unavailable [phone] Lon Kirk PA-C Primary Care Provider [phone] Albino Lou PA-C Unavailable [phone] Ortiz Carvajal MD Unavailable + [phone] Albino Lou PA-C Unavailable [phone] Cristina Goel OD Unavailable [phone] Cristina Goel OD Unavailable [phone] Encounter Details Date Type Department Care Team (Late st Contact Info) Description 12/02/2022 [facility] Medical Advice [address] [address] Bryce Dunn MA Social History Tobacco Use Types Packs/Day Years Used Date Smoking Tobacco: Never Smokeless Tobacco: Former Chew Quit: 05/14/2022 Alcohol Use Standard Drinks/Week Comments Yes 0 (1 standard drink = 0.6 oz pure alcohol) social. no alcohol in house; 3 beers with sports. PHQ-2 Answer Date Recorded PHQ-2 Score 0 05/10/2022 Sex and Gender Information Value Date Recorded Sex Assigned at Male 12/30/2021 8:08 AM CDT Legal Sex Male 3:36 AM PRODUCTION SOUND MIXER Gender Identity Male 01/01/2021 4:50 PM CDT Sexual Orientation Straight 01/01/2021 4: 50 PM CDT documented as of this encounter Plan of Treatment Not on file documented as of this encounter Visit Diagnoses Not on filedocumented in this encounter Care Teams Planner Intern Relationship Specialty Start Date End Date Lon Kirk PA-C [address] [address] [place] [address] PCP - General Physician Global Chief Creative Officer 09/23/19 Lon Kirk PA-C [address] [address] [place] [address] Assigned PCP 03/31/19 Albino Lou PA-C [address] [place] [address] Assigned Musculoskeletal Provider 06/25/22 05/17/23 Ortiz Carvajal MD [address] [place] [address] Assigned Heart and Vascular Provider 06/25/22 12/14/23 Albino Lou PA-C [address] [place] [address] Assigned Neuroscience Provider 05/18/23 01/14/24 Cristina Goel, ALEX [address] [facility] [place] [address] Ophthalmology 02/12/24 Cristina Goel OD [address] [place] [address] Assigned Surgical Provider 04/15/24 documented as of this encounter
--- OUTSIDE RECORDS SUMMARY | 2024-05-09 20:22 | XMS_ITS | Encounter Summary ---
Author Organization [place] Address [address] [facility] [place] [address] Care Team Providers Care Package Wrapper Name Role Phone Lon Kirk PA-C Unavailable [phone] Lon Kirk PA-C Primary Care Provider [phone] Ortiz Carvajal MD Unavailable + [phone] Albino Lou PA-C Unavailable [phone] Cristina Goel OD Unavailable [phone] Reason for Visit * Reason Onset Date Comments Panel Management 12/14/2023 Encounter Details Date Type Department Care Team (Late st Contact Info) Description 12/14/2023 Telephone [facility] [address] [place] [address] Lon Kirk PA-C [address] [place] [address] Panel Management Social History Tobacco Use Types Packs/Day Years [...] in an abandoned building, in an overnight long term, or couch-surfing.) Yes 05/01/2023 Are you worried [...] AM CDT Legal Sex Male 3:36 AM NARCOTICS 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 Gender Identity Male 01/01/2021 4:50 PM CDT Sexual Orientation Straight 01/01/2021 4: 50 PM CDT documented as of this encounter Plan of Treatment Not on file documented as of this encounter Visit Diagnoses Not on filedocumented in this encounter Care Teams Package Wrapper Relationship Specialty Start Date End Date Lon Kirk PA-C [address] [place] [address] PCP - General Physician Anesthesia Resident 09/23/19 Lon Kirk PA-C [address]47[address] [place] [address] Assigned PCP 03/31/19 Ortiz Carvajal MD [address] [place] [address] Assigned Heart and Vascular Provider 06/25/22 12/14/23 Albino Lou PA-C [address] [place] [address] Assigned Neuroscience Provider 05/18/23 01/14/24 Cristina Goel OD [address] [facility] [place] [address] Ophthalmology 02/12/24 documented as of this encounter
--- OUTSIDE RECORDS SUMMARY | 2024-05-09 20:22 | XMS_ITS | Encounter Summary ---
Author Organization [place] Address [address] [facility] [place] [address] Care Team Providers Care Dye Range Operator Cloth Name Role Phone Lon Kirk PA-C Unavailable [phone] Lon Kirk PA-C Primary Care Provider [phone] Ortiz Carvajal MD Unavailable + [phone] Albino Lou PA-C Unavailable +[phone] Cristina Goel OD Unavailable [phone] Cristina Goel OD Unavailable [phone] Encounter Details Date Type Department Care Team (Late st Contact Info) Description 11/17/2023 [facility] [place] 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 Does patient need ortho referral for this? Angelica Matthews RN on 11/20/2023 at 11:04 AM documented in this encounter Plan of Treatment Not on file documented as of this encounter Visit Diagnoses Not on filedocumented in this encounter Care Teams Dye Range Operator Cloth Relationship Specialty Start Date End Date Lon Kirk PA-C [address] [place] [address] PCP - General Physician Post Form Remover 09/23/19 Lon Kirk PA-C 22272 [place] [place] [address] Assigned PCP 03/31/19 Ortiz Carvajal MD [address] [place] [address] Assigned Heart and Vascular Provider 06/25/22 12/14/23 Albino Lou PA-C [address] [place] [address] Assigned Neuroscience Provider 05/18/23 01/14/24 Cristina Goel OD [address] [place] [address] [place] [address] Ophthalmology 02/12/24 Cristina Goel OD [address] [place] [address] [place] [address] Assigned Surgical Provider 04/15/24 documented as of this encounter
--- OUTSIDE RECORDS SUMMARY | 2024-05-09 20:22 | XMS_ITS | Encounter Summary ---
Author Organization [place] Address [address] [facility] [place] [address] Care Team Providers Care Extension Service Supervisor Name Role Phone Lon Kirk PA-C Unavailable [phone] Lon Kirk PA-C Primary Care Provider [phone] Albino Lou PA-C Unavailable [phone] Ortiz Carvajal MD Unavailable + [phone] Albino Lou PA-C Unavailable +[phone] Cristina Goel OD Unavailable [phone] Cristina Goel OD Unavailable [phone] Encounter Details Date Type Department Care Team (Late st Contact Info) Description 12/19/2022 [facility] Medical Advice [facility] [address] [place] [address] Lon Kirk PA-C [address] [place] [address] Social History Tobacco Use Types [...] AM CDT 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 Gender Identity Male 01/01/2021 4:50 PM CDT Sexual Orientation Straight 01/01/2021 4: 50 PM CDT documented as of this encounter Plan of Treatment Not on file documented as of this encounter Visit Diagnoses Not on filedocumented in this encounter Care Teams Extension Service Supervisor Relationship Specialty Start Date End Date Lon Kirk PA-C [address] [address] [address] PCP - General Physician Operations Manager 09/23/19 Lon Kirk PA-C [address] [place] [address] Assigned PCP 03/31/19 Albino Lou PA-C [address] [place] [address] Assigned Musculoskeletal Provider 06/25/22 05/17/23 Ortiz Carvajal MD [address] [place] [address] Assigned Heart and Vascular Provider 06/25/22 12/14/23 Albino Lou PA-C [address] [place] [address] Assigned Neuroscience Provider 05/18/23 01/14/24 Cristina Goel OD [address] [place] [address] [place] [address] Ophthalmology 02/12/24 Cristina Goel OD [address] [place] [address] [place] [address] Assigned Surgical Provider 04/15/24 documented as of this encounter
--- OUTSIDE RECORDS SUMMARY | 2024-05-09 20:23 | XMS_ITS | Encounter Summary ---
Author Organization [place] Address [address] [facility] [place] [address] Care Team Providers Care Gelatin Maker Utility Name Role Phone Lon Kirk PA-C Unavailable [phone] Lon Kirk PA-C Primary Care Provider [phone] Cristina Goel OD Unavailable Albino Lou PA-C Unavailable +[phone] Ortiz Carvajal MD Unavailable + [phone] Albino Lou PA-C Unavailable +[phone] Cristina Goel OD Unavailable Cristina Goel OD Unavailable Reason for Visit * Reason Onset Date Comments Refill Request 06/06/2020 Encounter Details Date Type Department Care Team (Late st Contact Info) Description 06/06/2020 MyC Refill [facility] [address] [place] [address] Lon Kirk PA-C [address] [place] [address] Refill Request Social History Tobacco Use Types Packs/Day Years [...] AM CDT 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 Gender Identity Male 01/01/2021 4:50 PM CDT Sexual Orientation Straight 01/01/2021 4: 50 PM CDT documented as of this encounter Plan of Treatment Not on file documented as of this encounter Visit Diagnoses Diagnosis Type 2 diabetes mellitus with diabetic polyneuropathy, without long-term current use of insulin (H) documented in this encounter Care Teams Gelatin Maker Utility Relationship Specialty Start Date End Date Lon Kirk PA-C [address] [place] [address] PCP - General Physician Food And Beverage Cashier 09/23/19 Lon Kirk PA-C [address] [place] [address] Assigned PCP 03/31/19 Cristina Goel OD [address] [facility] [place] [address] Assigned Surgical Provider 03/14/21 09/17/21 Albino Lou PA-C [address] [place] [address] Assigned Musculoskeletal Provider 06/25/22 05/17/23 Ortiz Carvajal MD [address] [place] [address] Assigned Heart and Vascular Provider 06/25/22 12/14/23 Albino Lou PA-C [address] [place] [address] Assigned Neuroscience Provider 05/18/23 01/14/24 Cristina Goel, ALEX [address] [facility] [place] [address] MD Ophthalmology 02/12/24 Cristina Goel, ALEX [address] [facility] [place] [address] Assigned Surgical Provider 04/15/24 documented as of this encounter
--- OUTSIDE RECORDS SUMMARY | 2024-05-09 20:24 | XMS_ITS | Encounter Summary ---
Author Organization [place] Address [facility] [address] Care Team Providers Care Real Estate Underwriter Name Role Phone Lon Kirk PA-C Unavailable [phone] Lon Kirk PA-C Primary Care Provider [phone] Cristina Goel OD Unavailable [phone] Albino Lou PA-C Unavailable [phone] Ortiz Carvajal MD Unavailable + [phone] Albino Lou PA-C Unavailable +[phone] Cristina Goel OD Unavailable Cristina Goel OD Unavailable Encounter Details Date Type Department Care Team (Late st Contact Info) Description 01/06/2020 [facility] [address] [place] [address] Lon Kirk PA-C [address] [place] [address] Social History Tobacco Use Types [...] AM CDT 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 No / Unsure 01/07/2020 9:45 AM CDT documented as of this encounter Plan of Treatment Not on file documented as of this encounter Visit Diagnoses Not on filedocumented in this encounter Care Teams Real Estate Underwriter Relationship Specialty Start Date End Date Lon Kirk PA-C [address] [address] [address] PCP - General Physician Damage Assessor 09/23/19 Lon Kirk PA-C [address] [place] [place] [address] Assigned PCP 03/31/19 Cristina Goel OD [address] [facility] [place] [address] Assigned Surgical Provider 03/14/21 09/17/21 Albino Lou PA-C [address] [place] [address] Assigned Musculoskeletal Provider 06/25/22 05/17/23 Ortiz Carvajal MD [address] [place] [address] Assigned Heart and Vascular Provider 06/25/22 12/14/23 Albino Lou PA-C [address] [place] [address] Assigned Neuroscience Provider 05/18/23 01/14/24 Cristina Goel OD [address] [facility] [place] [address] MD Ophthalmology 02/12/24 Cristina Goel OD [address] [facility] [place] [address] Assigned Surgical Provider 04/15/24 documented as of this encounter
--- OUTSIDE RECORDS SUMMARY | 2024-05-09 20:24 | XMS_ITS | Encounter Summary ---
Author Organization [place] Address [address] [facility] [place] [address] Care Team Providers Care Slabber Name Role Phone Lon Kirk PA-C Unavailable [phone] Lon Kirk PA-C Primary Care Provider [phone] Cristina Goel OD Unavailable [phone] Albino Lou PA-C Unavailable +[phone] Ortiz Carvajal MD Unavailable + [phone] Albino Lou PA-C Unavailable [phone] Cristina Goel OD Unavailable Cirstina Goel OD Unavailable Reason for Visit * Reason Onset Date Comments other 02/19/2020 eye doctor recom mendation Encounter Details Date Type Department Care Team (Late st Contact Info) Description 02/19/2020 [facility] [place] [facility] [address] [place] [address] Lon Kirk PA-C [address] [place] [address] other (eye doctor recommendation) Social History Tobacco Use Types Packs/Day Years [...] AM CDT 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 documented in this encounter Plan of Treatment Not on file documented as of this encounter Visit Diagnoses Not on filedocumented in this encounter Care Teams Slabber Relationship Specialty Start Date End Date Lon Kirk PA-C [address] [address] [address] PCP - General Physician Kiln Maintenance 09/23/19 Lon Kirk PA-C [address] [place] [address] Assigned PCP 03/31/19 Cristina Goel OD [address] [facility] [place] [address] Assigned Surgical Provider 03/14/21 09/17/21 Albino Lou PA-C [address] [place] [address] Assigned Musculoskeletal Provider 06/25/22 05/17/23 Ortiz Carvajal MD [address] [place] [address] Assigned Heart and Vascular Provider 06/25/22 12/14/23 Albino Lou PA-C [address] [place] [address] Assigned Neuroscience Provider 05/18/23 01/14/24 Cristina Goel OD [address] [facility] [place] [address] MD Ophthalmology 02/12/24 Cristina Goel OD [address] [facility] [place] [address] Assigned Surgical Provider 04/15/24 documented as of this encounter
--- OUTSIDE RECORDS SUMMARY | 2024-05-09 20:24 | XMS_ITS | Encounter Summary ---
Author Organization [place] Address [address] [place] [address]. [place] [address] Care Team Providers Care Cooper Helper Name Role Phone Kassandra Diaz MD Primary Care Provider Unavailab Kassandra Miles MD Unavailable Unavailable Kassandra Diaz MD Unavailable Unavailable Lon Kirk PA-C Unavailable [phone] Lon Kirk PA-C Primary Care Provider [phone] Cristina Goel OD Unavailable Albino Lou PA-C Unavailable +[phone] Ortiz Carvajal MD Unavailable + [phone] Albino Lou PA-C Unavailable +[phone] Cristina Goel OD Unavailable Cristina Goel OD Unavailable Encounter Details Date Type Department Care Team (Late st Contact Info) Description 07/04/2017 [facility] [place] [address] [place] [address] Kassandra Diaz MD Social History Tobacco Use Types Packs/Day Years Used Date Smoking Tobacco: Never Smokeless Tobacco: Current Chew Alcohol Use Standard Drinks/Week Comments Yes 0 (1 standard drink = 0.6 oz pure alcohol) social. no alcohol in house; 3 beers with sports. 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 Gender Identity Male 01/01/2021 4:50 PM CDT Sexual Orientation Straight 01/01/2021 4: 50 PM CDT documented as of this encounter Plan of Treatment Not on file documented as of this encounter Visit Diagnoses Not on filedocumented in this encounter Care Teams Cooper Helper Relationship Specialty Start Date End Date Kassandra Diaz MD PCP - General Family Practice 06/12/17 09/22/19 Kassandra Diaz MD PCP - Assigned PCP 05/11/17 06/26/18 Lon Kirk PA-C [address] [place] [place] [address] PCP - General Physician Exhibits Manager 09/23/19 Kassandra Diaz MD Assigned PCP 05/11/17 03/30/19 Lon Kirk PA-C [address] [place] [address] Assigned PCP 03/31/19 Cristina Goel OD [address] [facility] [place] [address] Assigned Surgical Provider 03/14/21 09/17/21 Albino Lou PA-C [address] [place] [address]9035 Assigned Musculoskeletal Provider 06/25/22 05/17/23 Ortiz Carvajal MD [address] [place] [address] Assigned Heart and Vascular Provider 06/25/22 12/14/23 Albino Lou PA-C [address] [place] [address] Assigned Neuroscience Provider 05/18/23 01/14/24 Cristina Goel OD [address] [facility] [place] [address] MD Ophthalmology 02/12/24 Cristina Goel OD [address] [facility] [place] [address] Assigned Surgical Provider 04/15/24 documented as of this encounter
--- OUTSIDE RECORDS SUMMARY | 2024-05-09 20:24 | XMS_ITS | Encounter Summary ---
Author Organization [place] Address [address] [place] [address]. [place] [address] Care Team Providers Care Scheduling Analyst Name Role Phone Kassandra Diaz MD Primary Care Provider Unavailab Lon Mccollum PA-C Unavailable [phone] Lon Kirk PA-C Primary Care Provider [phone] Cristina Goel OD Unavailable Albino Lou PA-C Unavailable [phone] Ortiz Carvajal MD Unavailable + [phone] Albino Lou PA-C Unavailable +[phone] Cristina Goel OD Unavailable Cristina Goel OD Unavailable Encounter Details Date Type Department Care Team (Late st Contact Info) Description 09/19/2019 [facility] Medical Advice [address] [address] Kim Kessler Social History Tobacco Use Types Packs/Day Years Used Date Smoking Tobacco: Never Smokeless Tobacco: Current Chew Alcohol Use Standard Drinks/Week Comments Yes 0 (1 standard drink = 0.6 oz pure alcohol) social. no alcohol in house; 3 beers with sports. 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 Gender Identity Male 01/01/2021 4:50 PM CDT Sexual Orientation Straight 01/01/2021 4: 50 PM CDT documented as of this encounter Plan of Treatment Not on file documented as of this encounter Visit Diagnoses Not on filedocumented in this encounter Care Teams Scheduling Analyst Relationship Specialty Start Date End Date Kassandra Diaz MD PCP - General Family Practice 06/12/17 09/22/19 Lon Kirk PA-C [address] [place] [address] [address] PCP - General Physician Engineering Teacher 09/23/19 Lon Kirk PA-C 42709 [place] [address] Assigned PCP 03/31/19 Cristina Goel OD [address] [place] [address] [place] [address] Assigned Surgical Provider 03/14/21 09/17/21 Albino Lou PA-C [address] [place] [address] Assigned Musculoskeletal Provider 06/25/22 05/17/23 Ortiz Carvajal MD [address] [place] [address] Assigned Heart and Vascular Provider 06/25/22 12/14/23 Albino Lou PA-C [address] [place] [address] Assigned Neuroscience Provider 05/18/23 01/14/24 Cristina Goel OD [address] [place] [address] [place] [address] Ophthalmology 02/12/24 Cristina Goel OD [address] [facility] [place] [address] Assigned Surgical Provider 04/15/24 documented as of this encounter
--- OUTSIDE RECORDS SUMMARY | 2024-05-09 20:24 | XMS_ITS | Encounter Summary ---
Author Organization [place] Address [address] [place] [address]. [place] [address] Care Team Providers Care Junior Assistant Manager Name Role Phone Kassandra Diaz MD Primary Care Provider Unavailab Kassandra Miles MD Unavailable Unavailable Kassandra Diaz MD Unavailable Unavailable Lon Kirk PA-C Unavailable [phone] Lon Kirk PA-C Primary Care Provider [phone] Cristina Goel OD Unavailable Albino Lou PA-C Unavailable [phone] Ortiz Carvajal MD Unavailable + [phone] Albino Lou PA-C Unavailable +[phone] Cristina Goel OD Unavailable Cristina Goel OD Unavailable Encounter Details Date Type Department Care Team (Late st Contact Info) Description 09/11/2017 [facility] [place] [address] [address] Paty [address] [address] Social History Tobacco Use Types Packs/Day Years Used Date Smoking Tobacco: Never Smokeless Tobacco: Current Chew Alcohol Use Standard Drinks/Week Comments Yes 0 (1 standard drink = 0.6 oz pure alcohol) social. no alcohol in house; 3 beers with sports. 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 Gender Identity Male 01/01/2021 4:50 PM CDT Sexual Orientation Straight 01/01/2021 4: 50 PM CDT documented as of this encounter Plan of Treatment Not on file documented as of this encounter Visit Diagnoses Not on filedocumented in this encounter Care Teams Junior Assistant Manager Relationship Specialty Start Date End Date Kassandra Diaz MD PCP - General Family Practice 06/12/17 09/22/19 Kassandra Diaz MD PCP - Assigned PCP 05/11/17 06/26/18 Lon Kirk PA-C [address] [place] [address] PCP - General Physician Train Conductor 09/23/19 Kassandra Diaz MD Assigned PCP 05/11/17 03/30/19 Lon Kirk PA-C [address] [place] [address] Assigned PCP 03/31/19 Cristina Goel OD [facility] [place] [address] Assigned Surgical Provider 03/14/21 09/17/21 Albino Lou PA-C [address] [place] [address] Assigned Musculoskeletal Provider 06/25/22 05/17/23 Ortiz Carvajal MD [address] [place] [address] Assigned Heart and Vascular Provider 06/25/22 12/14/23 Albino Lou PA-C [address] [facility] [place] [address] Assigned Neuroscience Provider 05/18/23 01/14/24 Cristina Goel OD [address] [facility] [place] [address] MD Ophthalmology 02/12/24 Cristina Goel OD [address] [facility] [place] [address] Assigned Surgical Provider 04/15/24 documented as of this encounter
--- OUTSIDE RECORDS SUMMARY | 2024-05-09 20:24 | XMS_ITS | Encounter Summary ---
Author Organization [place] Address [address] [place] [address]. [place] [address] Care Team Providers Care Senior Java Programmer Analyst Name Role Phone Kassandra Diaz MD Primary Care Provider Unavailab Kassandra Miles MD Unavailable Unavailable Lon Kirk PA-C Unavailable [phone] Lon Kirk PA-C Primary Care Provider [phone] Cristina Goel OD Unavailable [phone] Albino Lou PA-C Unavailable [phone] Ortiz Carvajal MD Unavailable + [phone] Albino Lou PA-C Unavailable +[phone] Cristina Goel OD Unavailable [phone] Cristina Goel OD Unavailable [phone] Encounter Details Date Type Department Care Team (Latest Contact Info) Description 08/24/[place] [facility] [place] [address] [address] Kassandra Diaz MD Hypertension goal BP (blood pressure) < 140/90 (Primary Dx) Social History Tobacco Use Types Packs/Day Years [...] AM CDT 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 Would like BP medication change. Gina Sands RN Flex documented in this encounter Plan of Treatment Not on file documented as of this encounter Visit Diagnoses Diagnosis Hypertension goal BP (blood pressure) < 140/90- Primary Unspecified essential hypertension documented in this encounter Care Teams Senior Java Programmer Analyst Relationship Specialty Start Date End Date Kassandra Diaz MD PCP - General Family Practice 06/12/17 09/22/19 Lon Kirk PA-C [address] [address] [address] PCP - General Physician Roller Coaster Operator 09/23/19 Kassandra Diaz MD Assigned PCP 05/11/17 03/30/19 Lon Kirk PA-C [address] [address] [address] Assigned PCP 03/31/19 Cristina Goel OD [address] [facility] [place] [address] Assigned Surgical Provider 03/14/21 09/17/21 Albino Lou PA-C [address] [place] [address] Assigned Musculoskeletal Provider 06/25/22 05/17/23 Ortiz Carvajal MD [address] [place] [address] Assigned Heart and Vascular Provider 06/25/22 12/14/23 Albino Lou PA-C [address] [place] [address] Assigned Neuroscience Provider 05/18/23 01/14/24 Cristina Goel OD [address] [facility] [place] [address] Ophthalmology 02/12/24 Cristina Goel OD [address] [facility] [place] [address] Assigned Surgical Provider 04/15/24 documented as of this encounter
== END 2024-05-09 20:38 | disposition left against medical advice (07) ==
PROVIDERS: Emergency Provider Emergency Medicine Emergency Medical Services; Visit Provider Emergency Medicine Emergency Medical Services
DX: R00.2 Palpitations (principal); Z53.21 Procedure and treatment not carried out due to patient leaving prior to being seen by health care provider
CPT/HCPCS: 71046; 87631

== ENCOUNTER 2024-05-11 11:40 | Outpatient (CLI) | payer BC, SELFPAY | END 2024-05-11 11:41 | disposition home or self-care (01) | LOC: AMB 06-03 15:31 | PROVIDERS: Visit Provider Internal Medicine | DX: R42 Dizziness and giddiness (principal) | CPT/HCPCS: A0998 ==

== ENCOUNTER 2024-05-11 12:24 | Emergency (ER) | payer BC, SELFPAY ==
--- OUTSIDE RECORDS SUMMARY | 2024-05-11 12:27 | XMS_ITS | Continuity of Care Document ---
Author Name [email or web address] Address Unknown Organization Unknown Address Unknown Encounters FILTER APPLIED:Only known Encounters with Admission Date within the last 5 years Encounter Location Admission Discharge Billing Code Shell Fisherman Silvana jones Outpatient [facility] Outpatient [facility] Outpatient [facility]
--- OUTSIDE RECORDS SUMMARY | 2024-05-11 12:28 | XMS_ITS | Encounter Summary ---
Author Organization [place] Address [address] [facility] 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 Gender Identity Male 01/01/2021 4:50 PM CDT Sexual Orientation Straight 01/01/2021 4: 50 PM CDT documented as of this encounter Plan of Treatment Not on file documented as of this encounter Visit Diagnoses Not on filedocumented in this encounter Care Teams Maintenance Mechanic Helper Relationship Specialty Start Date End Date Lon Kirk PA-C [address] [place] [address] PCP - General Physician Professor Of Engineering 09/23/19 Lon Kirk PA-C [address]89[address] [place] [place] [address] Assigned PCP 03/31/19 Cristina Goel OD [address] [place] [address] [place] [address] Ophthalmology 02/12/24 documented as of this encounter
--- OUTSIDE RECORDS SUMMARY | 2024-05-11 12:28 | XMS_ITS | Referral Summary ---
Author Organization [place] Address Formerly [facility], later [facility] [place] [address] Care Team Providers Care Faculty I On Call Medical Assistant Name Role Phone Lon Kirk PA-C Unavailable [phone] Lon Kirk PA-C Primary Care Provider [phone] Cristina Goel OD Unavailable Cristina Goel OD Unavailable Encounters Date Type Department Care Team Description 04/11/2024 Travel 04/11/2024 11:30 AM GLUED WOOD TESTER Office Visit [address] [place] [address] Cristina Goel, ALEX Type 2 diabetes [...] 2 diabetes mellitus with diabetic polyneuropathy, unspecified chcf insulin use status Use to test blood sugar 2-3 times daily or as directed. Ok to substitute alternative if insurance prefers. 1 kit 8 Active blood glucose monitoring (ARTHUR MICROLET) lancetsIndicatio ns:Type 2 diabetes mellitus with diabetic polyneuropathy, unspecified chcf insulin use status Use to test blood [...] in an abandoned building, in an overnight snf, or couch-surfing.) Yes 05/01/2023 Are you worried [...] AM CDT Legal Sex Male 3:36 AM GLUED WOOD TESTER Gender Identity Male 01/01/2021 4:50 PM CDT Sexual Orientation Straight 01/01/2021 4: 50 PM CDT Last Filed Vital Signs Vital Sign Reading Time Taken Comments Blood Pressure 133/88 05/01/2023 10:47 AM GLUED WOOD TESTER Pulse 80 05/01/2023 10:47 AM GLUED WOOD TESTER Temperature 36.7 C (98 F) 05/01/2023 10:47 AM GLUED WOOD TESTER Respiratory Rate 22 05/01/2023 10:4 7 AM GLUED WOOD TESTER Oxygen Saturation 99% 05/01/2023 10: 47 AM GLUED WOOD TESTER Inhaled Oxygen Concentration - - Weight 110.6 kg (243 lb 14.4 oz) 2023 10:47 AM GLUED WOOD TESTER Height 190.5 cm (6' 3) 05/01/2023 10:4 7 AM GLUED WOOD TESTER Body Mass Index 30.49 05/01/2023 10:47 AM GLUED WOOD TESTER Plan of Treatment Not on file Procedures Procedure Name Priority Date/Time Associated Diagnosis Comments OR REFRACTION Routine 04/11/2024 12:07 PM GLUED WOOD TESTER Hyperopia of both eyes with astigmatism Presbyopia EYE EXAM (SIMPLE-NONBILLABLE) Routine 04/11/2024 12:07 PM GLUED WOOD TESTER Type 2 diabetes mellitus with diabetic polyneuropathy, without long-term current use of insulin (H) Type 2 diabetes mellitus without retinopathy (H) ALBUMIN RANDOM URINE QUANTITATIVE Routine 05/01/2023 11:29 AM GLUED WOOD TESTER Type 2 diabetes mellitus with diabetic polyneuropathy, without long-term current use of insulin (H) LIPID REFLEX TO DIRECT LDL PANEL Routine 05/01/2023 11:19 AM GLUED WOOD TESTER Type 2 diabetes mellitus with diabetic polyneuropathy, without long-term current use of insulin (H) BASIC METABOLIC PANEL Routine 05/01/2023 11:19 AM GLUED WOOD TESTER Type 2 diabetes mellitus with diabetic polyneuropathy, without long-term current use of insulin (H) HEMOGLOBIN A1C Routine 05/01/2023 11:19 AM GLUED WOOD TESTER Type 2 diabetes mellitus with diabetic polyneuropathy, without long-term current use of insulin (H) HEPATITIS C SCREEN REFLEX TO HCV RNA QUANT AND GENOTYPE Routine 01/04/2021 10:41 AM CDT Need for hepatitis C screening test HIV ANTIGEN ANTIBODY COMBO Routine 04/02/2018 9:01 AM GLUED WOOD TESTER Encounter for screening for HIV COLONOSCOPY Routine 07/06/2017 10:07 AM CDT from Last 3 Months or Most Recently Relevant to Health Maintenance Results * Albumin Random Urine Quantitative with Creat Ratio (05/01/2023 11:29 AM GLUED WOOD TESTER) Creatinine Urine mg/dL 196.0 mg/dL 05/02/2023 1:28 AM GLUED WOOD TESTER [facility] Comment:The reference ranges have not been established in urine creatinine. The results should be integrated into the clinical context for interpretation. Albumin Urine mg/L <12.0 mg/L 2023 1:28 AM GLUED WOOD TESTER [facility] Comment:The reference ranges have not been established in urine albumin. The results should be integrated into the clinical context for interpretation. Albumin Urine mg/g Cr 05/02/2023 1:28 AM GLUED WOOD TESTER [facility] Comment: Unable to calculate, urine [...] control, and institution of therapy with an gbogekcbbvz-gygudtmppk-mexayw (KAYLEEN) inhibitor (if the patient can tolerate it). Urine URINE SPECIMEN / Unknown Non-blood Collection / Unknown 05/01/2023 11:29 AM GLUED WOOD TESTER 05/01/2023 11:29 AM GLUED WOOD TESTER us Lon Kirk PA-C LAB - URINE ORDERABLES Final R esult [facility] [address] [facility] [address], [address] [place] [address], [facility] [phone] * Lipid panel reflex to direct LDL Fasting (05/01/2023 11:19 AM GLUED WOOD TESTER) Cholesterol 189 <200 mg/dL 05/01/2023 9:52 PM GLUED WOOD TESTER [facility] Triglycerides 61 <150 mg/dL 05/01/2023 9:52 PM GLUED WOOD TESTER [facility] Direct Measure HDL 86 >=40 mg/dL 2023 9:52 PM GLUED WOOD TESTER [facility] LDL Cholesterol Calculated 91 <=100 mg/dL 05/01/2023 9:52 PM GLUED WOOD TESTER [facility] Non HDL Cholesterol 103 <130 mg/dL 05/01/2023 9:52 PM GLUED WOOD TESTER [facility] Patient Fasting > 8hrs? Yes 05/01/2023 9:52 PM GLUED WOOD TESTER [facility] Blood BLOOD SPECIMEN / Unknown Venipuncture / Unknown 05/01/2023 11:19 AM GLUED WOOD TESTER 05/01/2023 11:19 AM GLUED WOOD TESTER Narrative [facility] - 05/01/2023 9:52 PM GLUED WOOD TESTER Cholesterol Desirable: <200 mg/dL Triglycerides Normal: Less [...] BLOOD ORDERABLES Final R esult [facility] [address] [facility] [address], [address] [place] [address] [phone] * (ABNORMAL) Hemoglobin A1c (05/01/2023 11:19 AM GLUED WOOD TESTER) Hemoglobin A1C 6.7(H) 0.0 - 5.6 % 05/01/2023 11:30 AM GLUED WOOD TESTER [facility]ORY Comment: Normal <5.7% Prediabetes 5.7-6.4% Diabetes 6.5% or higher Note: Adopted from ADA consensus guidelines. Blood BLOOD SPECIMEN / Unknown Venipuncture / Unknown 05/01/2023 11:19 AM GLUED WOOD TESTER 05/01/2023 11:19 AM GLUED WOOD TESTER us Lon Kirk PA-C LAB - BLOOD ORDERABLES Final R esult LABORATORY [facility] [address] [facility] (no room number, 1st floor of clinic) [place] [address] [phone] * (ABNORMAL) BASIC METABOLIC PANEL (05/01/2023 11:19 AM GLUED WOOD TESTER) Sodium 139 135 - 145 mmol/L 05/01/2023 9:52 PM GLUED WOOD TESTER [facility] Comment:Reference intervals for this test were updated on 01/17/2023 to more accurately reflect our healthy population. There may be differences in the flagging of prior results with similar values performed with this method. Interpretation of those prior results can be made in the context of the updated reference intervals. Potassium 4.4 3.4 - 5.3 mmol/L 05/01/2023 9:52 PM GLUED WOOD TESTER [facility] Chloride 101 98 - 107 mmol/L 05/01/2023 9:52 PM GLUED WOOD TESTER [facility] Carbon Dioxide (CO2) 27 22 - 29 mmol/L 05/01/2023 9:52 PM GLUED WOOD TESTER [facility] Anion Gap 11 7 - 15 mmol/L 05/01/2023 9:52 PM GLUED WOOD TESTER [facility] Urea Nitrogen 17.5 6.0 - 20.0 mg/dL 05/01/2023 9:52 PM GLUED WOOD TESTER [facility] Creatinine 0.89 0.67 - 1.17 mg/dL 05/01/2023 9:52 PM GLUED WOOD TESTER [facility] GFR Estimate >90 >60 mL/min/1. 73m2 05/01/2023 9:52 PM GLUED WOOD TESTER [facility] Calcium 9.6 8.6 - 10.0 mg/dL 05/01/2023 9:52 PM GLUED WOOD TESTER [facility] Glucose 152(H) 70 - 99 mg/dL 05/01/2023 9:52 PM GLUED WOOD TESTER [facility] Blood BLOOD SPECIMEN / Unknown Venipuncture / Unknown 05/01/2023 11:19 AM GLUED WOOD TESTER 05/01/2023 11:19 AM GLUED WOOD TESTER Lon Kirk PA-C LAB - BLOOD ORDERABLES Final R esult LABORATORY [facility] [address] [facility], [address] [place] [address], [place] [phone] * Hepatitis C Screen Reflex to HCV RNA Quant and Genotype (01/04/2021 10:41 AM CDT) Hepatitis C Antibody Nonreactive Nonreactive 01/05/2021 11:33 AM CDT [facility] Blood STRUCTURE OF RIGHT UPPER LIMB / Unknown Venipuncture / Unknown 01/04/2021 10:41 AM CDT 01/04/2021 10:41 AM CDT Narrative [facility] - 01/05/2021 11:33 AM CDT Assay performance characteristics have not been established for newborns, infants, and children. Lon Kirk PA-C LAB - BLOOD ORDERABLES Final R esult [facility] [address] [facility], [address] [place] [address], [place] [phone] * HIV Antigen Antibody Combo (04/02/2018 9:01 AM GLUED WOOD TESTER) HIV Antigen Antibody Combo Nonreactive NR^Nonrea ctive 04/02/2018 10:18 PM GLUED WOOD TESTER [facility] Comment:HIV-1 p24 Ag & HIV-1 /HIV-2 Ab Not Detected Blood specimen (specimen) 04/02/2018 9:01 AM GLUED WOOD TESTER 04/02/2018 9:02 AM GLUED WOOD TESTER us Kassandra Diaz MD LAB - BLOOD ORDERABLES Final Res ult [facility] [address] [place] [address] * COLONOSCOPY (07/06/2017 10:07 AM CDT) COLONOSCOPY [facility] Patient Name: Kaiden Joel Long Procedure Date: [...] The [employer] [facility] Colonoscope Model #PCF-H190L, [place]#133, SN#[id number] was introduced through the anus and advanced [...] malignant neoplasm of colon CPT copyright 2016 [employer] [place] [employer]. All rights reserved. The codes documented in this report are preliminary and upon licensed mortgage loan officer review may be revised to meet current [...] Most Recently Relevant to Health Maintenance Insurance [facility] [employer] [facility] * Guarantor: Kaiden Alves Account Type Relation to Patient Date of Phone Billing Address Medication Therapy Self 1965 [id number] [place] [address] Care Teams Faculty I On Call Medical Assistant Relationship Specialty Start Date End Date Lon Kirk PA-C [address] [place] [address] PCP - General Physician Textiles And Clothing Teacher 09/23/19 Lon Kirk PA-C [address] [place] [address] Assigned PCP 03/31/19 Cristina Goel OD [address] [place] [address] [place] [address] MD Ophthalmology 02/12/24 [place] [address] [place] [address] [place] [address] Assigned Surgical Provider 04/15/24
--- OUTSIDE RECORDS SUMMARY | 2024-05-11 12:28 | XMS_ITS | Encounter Summary ---
Author Organization [place] Address [address] [facility] [place] [address] Care Team Providers Care Medical Services Assistant Name Role Phone Lon Kirk PA-C Unavailable [phone] Lon Kirk PA-C Primary Care Provider [phone] Cristina Goel OD Unavailable [phone] Reason for Visit * Reason Comments Diabetic Eye Exam * Consultation (Routine: Next available opening) - Pending Review Specialty Diagnoses / Procedures Referred By Otto moreno Referred To Contact Ophthalmology Diagnoses Type 2 diabetes mellitus with diabetic polyneuropathy, without long-term current use of insulin (H) Lon Kirk PA-C [address] [place] [address] Phone: tel: fax: Referral ID Status Reason Start Date Expiration Date V isits Requested Visits Authorized [id number] Pending Review 12/15/2023 12/14/2024 1 1 Encounter Details Date Type Department Care Team (Late st Contact Info) Description 04/11/2024 11:30 AM ENGINEERING TECHNOLOGY INSTRUCTOR Office Visit [facility] T[place] [address] [place] [address] Cristina Goel, OD [address] [facility] [place] [address] Type 2 diabetes mellitus [...] in an abandoned building, in an overnight senior living, or couch-surfing.) Yes 05/01/2023 Are you worried [...] AM CDT Legal Sex Male 3:36 AM ENGINEERING TECHNOLOGY INSTRUCTOR Gender Identity Male 01/01/2021 4:50 PM CDT Sexual Orientation Straight 01/01/2021 4: 50 PM CDT documented as of this encounter Patient Instructions * Patient Instructions* Cristina Goel, OD - 04/11/2024 11:30 AM ENGINEERING TECHNOLOGY INSTRUCTOR Patient Education Diabetes weakens the blood vessels all over the body, including the eyes. Damage to the blood vessels in the eyes can cause swelling or bleeding into part of the eye (called the retina). This is called diabetic retinopathy (GWN-vin-TV-puh-thee). If not treated, this disease can cause [...] the washcloth will help retain the heat. [place] 3 fatty acid supplements taken once to twice daily and artificial tears such as Soothe xp, Refresh optive , Retaine and systane balance are also an additional treatment to control inflammation and help soothe your eyes. Slight distance prescription Recommend no line bifocals NEERING TECHNOLOGY INSTRUCTOR NEERING TECHNOLOGY INSTRUCTOR * Attachments The following attachments cannot be sent through Care Everywhere. * Diabetic Retinopathy ([place]) * Presbyopia ([place]) documented in this encounter Progress Notes * [...] eye drops? : No Miley Pagan - Pump Service Supervisor Medical, surgical and family histories reviewed and updated 04/11/2024. OBJECTIVE: See Ophthalmology exam ASSESSMENT: ICD-10-CM 1. Type 2 diabetes mellitus without retinopathy (H) E11.9 EYE EXAM (SIMPLE-NONBILLABLE) 2. Type 2 diabetes mellitus with diabetic polyneuropathy, without long-term current use of insulin (H) E11.42 Adult Eye Safe Deposit Attendant Referral EYE EXAM (SIMPLE-NONBILLABLE) 3. Meibomian gland dysfunction H02.889 4. Hyperopia of both eyes with astigmatism H52.03 REFRACTION H52.203 5. Presbyopia H52.4 REFRACTION PLAN: Ongoing glucose control Warm compresses/ artificial tears as needed Progressive addition lens Kaiden Jonny Alves aware eye exam results will be sent to Lon Kirk. Cristina Goel OD NEERING TECHNOLOGY INSTRUCTOR documented in this encounter Plan of Treatment Not on file documented as of this encounter Procedures Procedure Name Priority Date/Time Associated Diagnosis Comments MD REFRACTION Routine 04/11/2024 12:07 PM ENGINEERING TECHNOLOGY INSTRUCTOR Hyperopia of both eyes with astigmatism Presbyopia EYE EXAM (SIMPLE-NONBILLABLE) Routine 04/11/2024 12:07 PM ENGINEERING TECHNOLOGY INSTRUCTOR Type 2 diabetes mellitus with diabetic polyneuropathy, [...] Presbyopia documented in this encounter Care Teams Medical Services Assistant Relationship Specialty Start Date End Date Lon Kirk PA-C [address] [place] [address] PCP - General Physician Triage Registered Nurse 09/23/19 Lon Kirk PA-C [address] [place] [address] Assigned PCP 03/31/19 Cristina Goel, OD [address] [place] [address] [place] [address] Ophthalmology 02/12/24 documented as of this encounter
--- OUTSIDE RECORDS SUMMARY | 2024-05-11 12:29 | XMS_ITS | Encounter Summary ---
Author Organization [place] Address [address] [facility] [address] Care Team Providers Care Roughener Name Role Phone Lon Kirk PA-C Unavailable [phone] Lon Kirk PA-C Primary Care Provider [phone] Albino Lou PA-C Unavailable [phone] Ortiz Carvajal MD Unavailable + [phone] Albino Lou PA-C Unavailable [phone] Cristina Goel OD Unavailable [phone] Cristina Goel OD Unavailable [phone] Reason for Visit * Reason Comments Medication Refill Encounter Details Date Type Department Care Team (Late st Contact Info) Description 02/25/2023 Refill [facility] [address] [place] [address] Lon Kirk PA-C [address] [place] [address] Medication Refill Social History Tobacco [...] AM CDT Legal Sex Male 3:36 AM SENIOR UX DEVELOPER Gender Identity Male 01/01/2021 4:50 PM CDT Sexual Orientation Straight 01/01/2021 4: 50 PM CDT documented as of this encounter Miscellaneous Notes * Telephone Encounter - Kassandra Armstrong RN - 02/27/2023 3:05 PM SENIOR UX DEVELOPER Last refill, DM APPOINTMENT DUE, INFORM PT OR UX DEVELOPER documented in this encounter Plan of Treatment Not on file documented as of this encounter Visit Diagnoses Diagnosis Hypertension goal BP (blood pressure) < 140/90 Unspecified essential hypertension Type 2 diabetes mellitus with diabetic polyneuropathy, without long-term current use of insulin (H) documented in this encounter Care Teams Roughener Relationship Specialty Start Date End Date Lon Kirk PA-C [address] [place] [address] PCP - General Physician Engraver Steel Plate 09/23/19 Lon Kirk PA-C [address] [place] [address] Assigned PCP 03/31/19 Albino Lou PA-C [address] [place] [address] Assigned Musculoskeletal Provider 06/25/22 05/17/23 Ortiz Carvajal MD [address] [place] [address] Assigned Heart and Vascular Provider 06/25/22 12/14/23 Albino Lou PA-C [address] [place] [address] Assigned Neuroscience Provider 05/18/23 01/14/24 Cristina Goel OD [address] [facility] [place] [address] MD Ophthalmology 02/12/24 Cristina Goel OD [address] [facility] [place] [address] Assigned Surgical Provider 04/15/24 documented as of this encounter
--- OUTSIDE RECORDS SUMMARY | 2024-05-11 12:29 | XMS_ITS | Encounter Summary ---
Author Organization [place] Address [address] [place] [address] Care Team Providers Care Aligning Checker Name Role Phone Lon Kirk PA-C Unavailable [phone] Lon Kirk PA-C Primary Care Provider [phone] Ortiz Carvajal MD Unavailable + [phone] Albino Lou PA-C Unavailable [phone] Cristina Goel OD Unavailable [phone] Cristina Goel OD Unavailable [phone] Encounter Details Date Type Department Care Team (Late st Contact Info) Description 11/17/2023 [facility] Medical Advice [facility] [address] [place] [address] Lon Kirk PA-C [address] [place] [address] Social History Tobacco Use Types [...] AM CDT Legal Sex Male 3:36 AM SHOE PATTERNMAKER Gender Identity Male 01/01/2021 4:50 PM CDT [...] on filedocumented in this encounter Care Teams Aligning Checker Relationship Specialty Start Date End Date Lon Kirk PA-C [address] [place] [address] PCP - General Physician Hand Tube Bender 09/23/19 Lon Kirk PA-C [address] [place] [address] Assigned PCP 03/31/19 Ortiz Carvajal MD [address] [place] [address] Assigned Heart and Vascular Provider 06/25/22 12/14/23 Albino Lou PA-C [address] [place] [address] Assigned Neuroscience Provider 05/18/23 01/14/24 Cristina Goel OD [address] [place] [address] [place] [address] Ophthalmology 02/12/24 Cristina Goel OD [address] [place] [address] [place] [address] Assigned Surgical Provider 04/15/24 documented as of this encounter
--- OUTSIDE RECORDS SUMMARY | 2024-05-11 12:30 | XMS_ITS | Encounter Summary ---
Author Organization [place] Address [address] [place] [address]. [place] [address] Care Team Providers Care Agronomy Supervisor Name Role Phone Lon Kirk PA-C Unavailable [phone] Lon Kirk PA-C Primary Care Provider [phone] Albino oLu PA-C Unavailable [phone] Ortiz Carvajal MD Unavailable + [phone] Albino Lou PA-C Unavailable [phone] Cristina Goel OD Unavailable [phone] Cristina Goel OD Unavailable [phone] Encounter Details Date Type Department Care Team (Late st Contact Info) Description 12/02/2022 MyC Medical Advice [address] [address] Bryce Dunn MA Social History [...] AM CDT Legal Sex Male 3:36 AM ENTRY EXAMINER Gender Identity Male 01/01/2021 4:50 PM CDT Sexual Orientation Straight 01/01/2021 4: 50 PM CDT documented as of this encounter Plan of Treatment Not on file documented as of this encounter Visit Diagnoses Not on filedocumented in this encounter Care Teams Agronomy Supervisor Relationship Specialty Start Date End Date Lon Kirk PA-C [address] [address] [place] [address] PCP - General Physician Equine Vet 09/23/19 Lon Kirk PA-C [address] [address] [place] [address] Assigned PCP 03/31/19 Albino Lou PA-C [address] [place] [address] Assigned Musculoskeletal Provider 06/25/22 05/17/23 Ortiz Carvajal MD [address] [place] [address] Assigned Heart and Vascular Provider 06/25/22 12/14/23 Albino Lou PA-C [address] [place] [address] Assigned Neuroscience Provider 05/18/23 01/14/24 Cristina Goel, ALEX [address] [facility] [place] [address] Ophthalmology 02/12/24 Cristina Goel OD [address] [facility] [place] [address] Assigned Surgical Provider 04/15/24 documented as of this encounter
--- OUTSIDE RECORDS SUMMARY | 2024-05-11 12:30 | XMS_ITS | Encounter Summary ---
Author Organization [place] Address [address] [facility] [place] [address] Care Team Providers Care Tax Specialist Name Role Phone Lon Kirk PA-C Unavailable [phone] Lon Kirk PA-C Primary Care Provider [phone] Albino Lou PA-C Unavailable [phone] Ortiz Carvajal MD Unavailable + [phone] Albino Lou PA-C Unavailable [phone] Cristina Goel OD Unavailable [phone] Cristina Goel OD Unavailable [phone] Encounter Details Date Type Department Care Team (Late st Contact Info) Description 12/19/2022 MyC Medical Advice [facility] [address] [place] [address] Lon Kirk PA-C [address] [place] [address] Social History Tobacco Use Types [...] AM CDT Legal Sex Male 3:36 AM BOBJ DEVELOPER Gender Identity Male 01/01/2021 4:50 PM CDT Sexual Orientation Straight 01/01/2021 4: 50 PM CDT documented as of this encounter Plan of Treatment Not on file documented as of this encounter Visit Diagnoses Not on filedocumented in this encounter Care Teams Tax Specialist Relationship Specialty Start Date End Date Lon Kirk PA-C [address] [place] [address] PCP - General Physician Education Courses Sales Representative 09/23/19 Lon Kirk PA-C [address] [place] [address] Assigned PCP 03/31/19 Albino Lou PA-C [address] [place] [address] Assigned Musculoskeletal Provider 06/25/22 05/17/23 Ortiz Carvajal MD [address] [place] [address] Assigned Heart and Vascular Provider 06/25/22 12/14/23 Albino Lou PA-C [address] [place] [address] Assigned Neuroscience Provider 05/18/23 01/14/24 Cristina Goel OD [address] [place] [address] [place] [address] Ophthalmology 02/12/24 Cristina Goel OD [address] [place] [address] [place] [address] Assigned Surgical Provider 04/15/24 documented as of this encounter
--- OUTSIDE RECORDS SUMMARY | 2024-05-11 12:31 | XMS_ITS | Encounter Summary ---
Author Organization [place] Address [address] [place] [address]. [place] [address] Care Team Providers Care Director Of Ancillary Services Name Role Phone Lon Kirk PA-C Unavailable [phone] Lon Kirk PA-C Primary Care Provider [phone] Albino Lou PA-C Unavailable +[phone] Ortiz Carvajal MD Unavailable + [phone] Albino Lou PA-C Unavailable +[phone] Cristina Goel OD Unavailable [phone] Cristina Goel OD Unavailable [phone] Encounter Details Date Type Department Care Team (Late st Contact Info) Description 12/20/2021 MyC Medical Advice [address] [address] Karen Leija Social History Tobacco [...] AM CDT Legal Sex Male 3:36 AM SHOTGUN SHELL REPRINTING UNIT OPERATOR Gender Identity Male 01/01/2021 4:50 PM CDT Sexual Orientation Straight 01/01/2021 4: 50 PM CDT documented as of this encounter Plan of Treatment Not on file documented as of this encounter Visit Diagnoses Not on filedocumented in this encounter Care Teams Director Of Ancillary Services Relationship Specialty Start Date End Date Lon Kirk PA-C [address] [place] [address] PCP - General Physician Digital Media Buyer 09/23/19 Lon Kirk PA-C [address]79 [address] [place] [address] Assigned PCP 03/31/19 Albino Lou PA-C [address] [place] [address] Assigned Musculoskeletal Provider 06/25/22 05/17/23 Ortiz Carvajal MD [address] [place] [address] Assigned Heart and Vascular Provider 06/25/22 12/14/23 Albino Lou PA-C [address] [place] [address] Assigned Neuroscience Provider 05/18/23 01/14/24 Cristina Goel OD [address] [place] [address] [place] [address] Ophthalmology 02/12/24 Cristina Goel OD [address] [place] [address] [place] [address] Assigned Surgical Provider 04/15/24 documented as of this encounter
--- OUTSIDE RECORDS SUMMARY | 2024-05-11 12:31 | XMS_ITS | Encounter Summary ---
Author Organization [place] Address [address] [place] [address]. 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 Gender Identity Male 01/01/2021 4:50 PM CDT Sexual Orientation Straight 01/01/2021 4: 50 PM CDT documented as of this encounter Plan of Treatment Not on file documented as of this encounter Visit Diagnoses Not on filedocumented in this encounter Care Teams Physical Director Relationship Specialty Start Date End Date Lon Kirk PA-C [address] [place] [address] PCP - General Physician Foundry Equipment Mechanic 09/23/19 Lon Kirk PA-C 35786 [place] [address] Assigned PCP 03/31/19 Cristina Goel OD [address] [place] [address] [place] [address] Assigned Surgical Provider 03/14/21 09/17/21 Albino Lou PA-C [address] [place] [address] Assigned Musculoskeletal Provider 06/25/22 05/17/23 Ortiz Carvajal MD [address] [place] [address] Assigned Heart and Vascular Provider 06/25/22 12/14/23 Albino Lou PA-C [address] [place] [address] Assigned Neuroscience Provider 05/18/23 01/14/24 Cristina Goel OD [address] [place] [address] [place] [address] Ophthalmology 02/12/24 Cristina Goel OD [address] [place] [address] [place] [address] Assigned Surgical Provider 04/15/24 documented as of this encounter
--- OUTSIDE RECORDS SUMMARY | 2024-05-11 12:31 | XMS_ITS | Encounter Summary ---
Author Organization [place] Address [address] [place] [address]. 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 Gender Identity Male 01/01/2021 4:50 PM CDT Sexual Orientation Straight 01/01/2021 4: 50 PM CDT documented as of this encounter Plan of Treatment Not on file documented as of this encounter Visit Diagnoses Not on filedocumented in this encounter Care Teams Ship Ceiler Relationship Specialty Start Date End Date Lon Kirk PA-C [address] [place] [address] PCP - General Physician Study Abroad Advisor 09/23/19 Lon Kirk PA-C 28102 [place] [address] Assigned PCP 03/31/19 Cristina Goel OD [address] [place] [address] [place] [address] Assigned Surgical Provider 03/14/21 09/17/21 Albino Lou PA-C [address] [place] [address] Assigned Musculoskeletal Provider 06/25/22 05/17/23 Ortiz Carvajal MD [address] [place] [address] Assigned Heart and Vascular Provider 06/25/22 12/14/23 Albino Lou PA-C [address] [place] [address] Assigned Neuroscience Provider 05/18/23 01/14/24 Cristina Goel OD [address] [place] [address] [place] [address] Ophthalmology 02/12/24 Cristina Goel OD [address] [place] [address] [place] [address] Assigned Surgical Provider 04/15/24 documented as of this encounter
--- OUTSIDE RECORDS SUMMARY | 2024-05-11 12:31 | XMS_ITS | Encounter Summary ---
Author Organization [place] Address [address] [place] [address]. [place] [address] Care Team Providers Care Store Operations Associate Name Role Phone Lon Kirk PA-C Unavailable [phone] Lon Kirk PA-C Primary Care Provider [phone] Cristina Goel OD Unavailable [phone] Albino Lou PA-C Unavailable +[phone] Ortiz Carvajal MD Unavailable + [phone] Albino Lou PA-C Unavailable +[phone] Cristina Goel OD Unavailable Cristina Goel OD Unavailable [phone] Encounter Details Date Type Department Care Team (Late st Contact Info) Description 09/03/2020 [facility] Medical Advice [address] [address] Kim Kessler Social History Tobacco [...] CDT 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 Gender Identity Male 01/01/2021 4:50 PM CDT Sexual Orientation Straight 01/01/2021 4: 50 PM CDT documented as of this encounter Plan of Treatment Not on file documented as of this encounter Visit Diagnoses Not on filedocumented in this encounter Care Teams Store Operations Associate Relationship Specialty Start Date End Date Lon Kirk PA-C [address] [place] [address] PCP - General Physician Overhead Irrigator 09/23/19 Lon Kirk PA-C 26[address] [address] [place] [address] Assigned PCP 03/31/19 Cristina Goel OD [address] [place] [address] [place] [address] Assigned Surgical Provider 03/14/21 09/17/21 Albino Lou PA-C [address] [place] [address] Assigned Musculoskeletal Provider 06/25/22 05/17/23 Ortiz Carvajal MD [address] [place] [address] Assigned Heart and Vascular Provider 06/25/22 12/14/23 Albino Lou PA-C [address] [place] [address] Assigned Neuroscience Provider 05/18/23 01/14/24 Cristina Goel OD [address] [place] [address] [place] [address] Ophthalmology 02/12/24 Cristina Goel OD [address] [facility] [address], [place] [address] Assigned Surgical Provider 04/15/24 documented as of this encounter
--- OUTSIDE RECORDS SUMMARY | 2024-05-11 12:32 | XMS_ITS | Encounter Summary ---
Author Organization [place] Address [address] [facility] [place] [address] Care Team Providers Care Programming Director Name Role Phone Lon Kirk PA-C Unavailable [phone] Lon Kirk PA-C Primary Care Provider [phone] Cristina Goel OD Unavailable [phone] Albino Lou PA-C Unavailable +[phone] Ortiz Carvajal MD Unavailable + [phone] Albino Lou PA-C Unavailable +[phone] Cristina Goel OD Unavailable Cristina Goel OD Unavailable Encounter Details Date Type Department Care Team (Late st Contact Info) Description 06/06/2020 [facility] Medical Advice [facility] [address] [place] [address] Lon Kirk PA-C [address] [place] [address] Type 2 diabetes mellitus with diabetic polyneuropathy, without long-term current use of insulin (H); Hyperlipidemia LDL goal <100; Hypertension goal BP (blood pressure) < 140/90 Social History Tobacco Use Types Packs/Day Years [...] AM CDT 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 Vanda Mike RN on 06/08/2020 at 10:47 AM NESS OPERATIONS ANALYST documented in this encounter Plan of Treatment Not on file documented as of this encounter Visit Diagnoses Diagnosis Type 2 diabetes mellitus with diabetic polyneuropathy, without long-term current use of insulin (H) Hyperlipidemia LDL goal <100 Other and unspecified hyperlipidemia Hypertension goal BP (blood pressure) < 140/90 Unspecified essential hypertension documented in this encounter Care Teams Programming Director Relationship Specialty Start Date End Date Lon Kirk PA-C [address] [place] [address] PCP - General Physician Scale Tank Operator 09/23/19 Lon Kirk PA-C [address]89 [place] [address] Assigned PCP 03/31/19 Cristina Goel OD [address] [facility] [place] [address] Assigned Surgical Provider 03/14/21 09/17/21 Albino Lou PA-C [address] [place] [address] Assigned Musculoskeletal Provider 06/25/22 05/17/23 Ortiz Carvajal MD [address] [place] [address] Assigned Heart and Vascular Provider 06/25/22 12/14/23 Albino Lou PA-C [address] [place] [address] Assigned Neuroscience Provider 05/18/23 01/14/24 Cristina Goel OD [address] [facility] [place] [address] Ophthalmology 02/12/24 Cristina Goel OD [address] [facility] [place] [address] Assigned Surgical Provider 04/15/24 documented as of this encounter
--- OUTSIDE RECORDS SUMMARY | 2024-05-11 12:32 | XMS_ITS | Encounter Summary ---
Author Organization [place] Address [address] [facility] [place] [address] Care Team Providers Care Fermenter Wine Name Role Phone Lon Kirk PA-C Unavailable [phone] Lon Kirk PA-C Primary Care Provider [phone] Cristina Goel OD Unavailable [phone] Albino Lou PA-C Unavailable +[phone] Ortiz Carvajal MD Unavailable + [phone] Albino Lou PA-C Unavailable +[phone] Cristina Goel OD Unavailable Cristina Goel OD Unavailable Encounter Details Date Type Department Care Team (Late st Contact Info) Description 06/28/2020 [place] Medical Advice [facility] [address] [place] [address] Lon Kirk PA-C [address] [place] [address] Social History Tobacco Use Types [...] AM CDT Legal Sex Male 3:36 AM RN INTEGRATED Gender Identity Male 01/01/2021 4:50 PM CDT Sexual Orientation Straight 01/01/2021 4: 50 PM CDT documented as of this encounter Plan of Treatment Not on file documented as of this encounter Visit Diagnoses Not on filedocumented in this encounter Care Teams Fermenter Wine Relationship Specialty Start Date End Date Lon Kirk PA-C [address] [place] [address] PCP - General Physician Barrel Cap Setter 09/23/19 Lon Kirk PA-C [address] [place] [address] Assigned PCP 03/31/19 Cristina Goel OD [address] [place] [address] [place] [address] Assigned Surgical Provider 03/14/21 09/17/21 Albino Lou PA-C [address] [place] [address] Assigned Musculoskeletal Provider 06/25/22 05/17/23 Ortiz Carvajal MD [address] [place] [address] Assigned Heart and Vascular Provider 06/25/22 12/14/23 Albino Lou PA-C [address] [place] [address] Assigned Neuroscience Provider 05/18/23 01/14/24 Cristina Goel OD [address] [place] [address] [place] [address] Ophthalmology 02/12/24 Cristina Goel OD [address] [facility] [place] [address] Assigned Surgical Provider 04/15/24 documented as of this encounter
--- OUTSIDE RECORDS SUMMARY | 2024-05-11 12:32 | XMS_ITS | Encounter Summary ---
Author Organization [place] Address [address] [place] [address] Care Team Providers Care Straddle Buggy Operator Name Role Phone Lon Kirk PA-C Unavailable [phone] Lon Kirk PA-C Primary Care Provider [phone] Cristina Goel OD Unavailable [phone] Albino Lou PA-C Unavailable +[phone] Ortiz Carvajal MD Unavailable + [phone] Albino Lou PA-C Unavailable +[phone] Cristina Goel OD Unavailable Cristina Goel OD Unavailable Reason for Visit * Reason Onset Date Comments Refill Request 06/06/2020 Encounter Details Date Type Department Care Team (Late st Contact Info) Description 06/06/[address] 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 Gender Identity Male 01/01/2021 4:50 PM CDT Sexual Orientation Straight 01/01/2021 4: 50 PM CDT documented as of this encounter Plan of Treatment Not on file documented as of this encounter Visit Diagnoses Diagnosis Type 2 diabetes mellitus with diabetic polyneuropathy, without long-term current use of insulin (H) documented in this encounter Care Teams Straddle Buggy Operator Relationship Specialty Start Date End Date Lon Kirk PA-C [address] [place] [address] PCP - General Physician Hand I Thermal Cutter 09/23/19 Lon Kirk PA-C [address] [place] [address] Assigned PCP 03/31/19 Cristina Goel OD [address] [facility] [place] [address] Assigned Surgical Provider 03/14/21 09/17/21 Albino Lou PA-C [address] [place] [address] Assigned Musculoskeletal Provider 06/25/22 05/17/23 Ortiz Carvajal MD [address] [place] [address] Assigned Heart and Vascular Provider 06/25/22 12/14/23 Albino Lou PA-C [address] [place] [address] Assigned Neuroscience Provider 05/18/23 01/14/24 Cristina Goel, ALEX [address] [facility] [place] [address] MD Ophthalmology 02/12/24 Cristina Goel, ALEX [address] [facility] [place] [address] Assigned Surgical Provider 04/15/24 documented as of this encounter
--- OUTSIDE RECORDS SUMMARY | 2024-05-11 12:33 | XMS_ITS | Encounter Summary ---
Author Organization [place] Address [address] [place] [address]. [place] [address] Care Team Providers Care Sound Effects Manager Name Role Phone Kassandra Diaz MD Primary Care Provider Unavailab Lon Mccollum PA-C Unavailable [phone] Lon Kirk PA-C Primary Care Provider [phone] Cristina Goel OD Unavailable Albino Lou PA-C Unavailable +[phone] Ortiz Carvajal MD Unavailable + [phone] Albino Lou PA-C Unavailable +[phone] Cristina Goel OD Unavailable Cristina Goel OD Unavailable Encounter Details Date Type Department Care Team (Late st Contact Info) Description 09/19/2019 [facility] Medical Advice [address] [address] Kim Kessler Social History Tobacco [...] AM CDT 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 Male 3:36 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 ANALYST Gender Identity Male 01/01/2021 4:50 PM CDT Sexual Orientation Straight 01/01/2021 4: 50 PM CDT documented as of this encounter Plan of Treatment Not on file documented as of this encounter Visit Diagnoses Not on filedocumented in this encounter Care Teams Sound Effects Manager Relationship Specialty Start Date End Date Kassandra Diaz MD PCP - General Family Practice 06/12/17 09/22/19 Lon Kirk PA-C [address] [place] [address] PCP - General Physician Cruise Agent 09/23/19 Lon Kirk PA-C [address] [place] [address] Assigned PCP 03/31/19 Cristina Goel OD [address] [place] [address] [place] [address] Assigned Surgical Provider 03/14/21 09/17/21 Albino Lou PA-C [address] [place] [address] Assigned Musculoskeletal Provider 06/25/22 05/17/23 Ortiz Carvajal MD [address] [place] [address] Assigned Heart and Vascular Provider 06/25/22 12/14/23 Albino Lou PA-C [address] [place] [address] Assigned Neuroscience Provider 05/18/23 01/14/24 Cristina Goel OD [address] [place] [address] [place] [address] Ophthalmology 02/12/24 Cristina Goel OD [address] [facility] [place] [address] Assigned Surgical Provider 04/15/24 documented as of this encounter
--- OUTSIDE RECORDS SUMMARY | 2024-05-11 12:33 | XMS_ITS | Encounter Summary ---
Author Organization [place] Address [facility] [place] [address] Care Team Providers Care Automobile Drivers Name Role Phone Lon Kirk PA-C Unavailable [phone] Lon Kirk PA-C Primary Care Provider [phone] Cristina Goel OD Unavailable Albino Lou PA-C Unavailable +[phone] Ortiz Carvajal MD Unavailable + [phone] Albino Lou PA-C Unavailable +[phone] Cristina Goel OD Unavailable [phone] Cristina Goel OD Unavailable Encounter Details Date Type Department Care Team (Late st Contact Info) Description 01/06/2020 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 Gender Identity Male 01/01/2021 4:50 PM [...] on filedocumented in this encounter Care Teams Automobile Drivers Relationship Specialty Start Date End Date Lon Kirk PA-C [address] [place] [address] PCP - General Physician Track Repairer Helper 09/23/19 Lon Kirk PA-C [address] [place] [address] Assigned PCP 03/31/19 Cristina Goel OD [address] [facility] [place] [address] Assigned Surgical Provider 03/14/21 09/17/21 Albino Lou PA-C [address] [place] [address] Assigned Musculoskeletal Provider 06/25/22 05/17/23 Ortiz Carvajal MD [address] [place] [address] Assigned Heart and Vascular Provider 06/25/22 12/14/23 Albino Lou PA-C [address] [place] [address] Assigned Neuroscience Provider 05/18/23 01/14/24 Cristina Goel OD [address] [facility] [place] [address] MD Ophthalmology 02/12/24 Cristina Goel OD [address] [facility] [place] [address] Assigned Surgical Provider 04/15/24 documented as of this encounter
--- OUTSIDE RECORDS SUMMARY | 2024-05-11 12:33 | XMS_ITS | Encounter Summary ---
Author Organization [place] Address [address] [place] [address]. [place] [address] Care Team Providers Care Biomechanical Engineer Name Role Phone Kassandra Diaz MD Primary Care Provider Unavailab Kassandra Miles MD Unavailable Unavailable Lon Kirk PA-C Unavailable [phone] Lon Kirk PA-C Primary Care Provider [phone] Cristina Goel OD Unavailable [phone] Albino Lou PA-C Unavailable [phone] Ortiz Carvajal MD Unavailable + [phone] Albino Lou PA-C Unavailable +[phone] Cristina Goel OD Unavailable [phone] Cristina Goel OD Unavailable [phone] Encounter Details Date Type Department Care Team (Latest Contact Info) Description 08/24/2018 [facility] Medical Advice [address] [address] Kassandra Diaz MD Hypertension goal [...] AM CDT 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 Would like BP medication change. Gina Sands RN Flex documented in this encounter Plan of Treatment Not on file documented as of this encounter Visit Diagnoses Diagnosis Hypertension goal BP (blood pressure) < 140/90- Primary Unspecified essential hypertension documented in this encounter Care Teams Biomechanical Engineer Relationship Specialty Start Date End Date Kassandra Diaz MD PCP - General Family Practice 06/12/17 09/22/19 Lon Kirk PA-C [address] [place] [address] PCP - General Physician Director Of Education 09/23/19 Kassandra Diaz MD Assigned PCP 05/11/17 03/30/19 Lon Kirk PA-C [address] [place] [address] Assigned PCP 03/31/19 Cristina Goel OD [address] [facility] [place] [address] Assigned Surgical Provider 03/14/21 09/17/21 Albino Lou PA-C [address] [place] [address] Assigned Musculoskeletal Provider 06/25/22 05/17/23 Ortiz Carvajal MD [address] [place] [address] Assigned Heart and Vascular Provider 06/25/22 12/14/23 Albino Lou PA-C [address] [place] [address] Assigned Neuroscience Provider 05/18/23 01/14/24 Cristina Goel OD [address] [facility] [place] [address] Ophthalmology 02/12/24 Cristina Goel OD [address] [facility] [place] [address] Assigned Surgical Provider 04/15/24 documented as of this encounter
--- OUTSIDE RECORDS SUMMARY | 2024-05-11 12:33 | XMS_ITS | Encounter Summary ---
Author Organization [place] Address [address] [facility] [place] [address] Care Team Providers Care Process Area Supervisor Name Role Phone Lon Kirk PA-C Unavailable [phone] Lon Kirk PA-C Primary Care Provider [phone] Cristina Goel OD Unavailable [phone] Albino Lou PA-C Unavailable [phone] Ortiz Carvajal MD Unavailable + [phone] Albino Lou PA-C Unavailable +[phone] Cristina Goel OD Unavailable Cristina Goel OD Unavailable Reason for Visit * Reason Onset Date Comments other 02/19/2020 eye doctor recom mendation Encounter Details Date Type Department Care Team (Late st Contact Info) Description 02/19/2020 [facility] [place] [facility] [address] [place] [address] Lon Kirk PA-C [address] [place] [address] other (eye doctor recommendation) Social [...] AM CDT 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 Gender Identity Male 01/01/2021 4:50 PM [...] on filedocumented in this encounter Care Teams Process Area Supervisor Relationship Specialty Start Date End Date Lon Kirk PA-C [address] [place] [address] PCP - General Physician Fagot Heater 09/23/19 Lon Kirk PA-C [address] [place] [address] Assigned PCP 03/31/19 Cristina Goel OD [address] [facility] [place] [address] Assigned Surgical Provider 03/14/21 09/17/21 Albino Lou PA-C [address] [place] [address] Assigned Musculoskeletal Provider 06/25/22 05/17/23 Ortiz Carvajal MD [address] [place] [address] Assigned Heart and Vascular Provider 06/25/22 12/14/23 Albino Lou PA-C [address] [place] [address] Assigned Neuroscience Provider 05/18/23 01/14/24 Cristina Goel OD [address] [facility] [place] [address] MD Ophthalmology 02/12/24 Cristina Goel OD [address] [facility] [place] [address] Assigned Surgical Provider 04/15/24 documented as of this encounter
--- OUTSIDE RECORDS SUMMARY | 2024-05-11 12:34 | XMS_ITS | Encounter Summary ---
Author Organization [facility] Address [address] [place] [address]. [place] [address] Care Team Providers Care Architect In Training Name Role Phone Kassandra Diaz MD Primary Care Provider Unavailab Kassandra Miles MD Unavailable Unavailable Kassandra Diaz MD Unavailable Unavailable Lon Kirk PA-C Unavailable [phone] Lon Kirk PA-C Primary Care Provider [phone] Cristina Goel OD Unavailable Albino Lou PA-C Unavailable [phone] Ortiz Carvajal MD Unavailable + [phone] Albino Lou PA-C Unavailable [phone] Cristina Goel OD Unavailable Cristina Goel OD Unavailable Encounter Details Date Type Department Care Team (Late st Contact Info) Description 07/04/2017 [facility] [place] [facility] [address] [place] [address] Kassandra Diaz MD Social History [...] AM CDT 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 Gender Identity Male 01/01/2021 4:50 PM CDT Sexual Orientation Straight 01/01/2021 4: 50 PM CDT documented as of this encounter Plan of Treatment Not on file documented as of this encounter Visit Diagnoses Not on filedocumented in this encounter Care Teams Architect In Training Relationship Specialty Start Date End Date Kassandra Diaz MD PCP - General Family Practice 06/12/17 09/22/19 Kassandra Diaz MD PCP - Assigned PCP 05/11/17 06/26/18 Lon Kirk PA-C [address] [address] PCP - General Physician Pilot Can Router 09/23/19 Kassandra Diaz MD Assigned PCP 05/11/17 03/30/19 Lon Kirk PA-C [address] [address] Assigned PCP 03/31/19 Cristina Goel OD [address] [facility] [place] [address] Assigned Surgical Provider 03/14/21 09/17/21 Albino Lou PA-C [address] [id number] Assigned Musculoskeletal Provider 06/25/22 05/17/23 Ortiz Carvajal MD [address] [place] [id number] Assigned Heart and Vascular Provider 06/25/22 12/14/23 Albino Lou PA-C [address] [place] [address] Assigned Neuroscience Provider 05/18/23 01/14/24 Cristina Goel OD [address] [facility] [place] [address] MD Ophthalmology 02/12/24 Cristina Goel OD [address] [facility] [place] [address] Assigned Surgical Provider 04/15/24 documented as of this encounter
--- OUTSIDE RECORDS SUMMARY | 2024-05-11 12:34 | XMS_ITS | Encounter Summary ---
Author Organization [facility] Address [address] [place] [address]. [place] [address] Care Team Providers Care Label Maker Name Role Phone Kassandra Diaz MD Primary Care Provider Unavailab Kassandra Miles MD Unavailable Unavailable Kassandra Diaz MD Unavailable Unavailable Lon Kirk PA-C Unavailable [phone] Lon Kirk PA-C Primary Care Provider [phone] Cristian Goel OD Unavailable Albino Lou PA-C Unavailable [phone] Ortiz Carvajal MD Unavailable + [phone] Albino Lou PA-C Unavailable [phone] Cristina Goel OD Unavailable Cristina Goel OD Unavailable Encounter Details Date Type Department Care Team (Late st Contact Info) Description 09/11/2017 [facility] [place] [address] [id number] Paty Mitchell[address] [address] Social History Tobacco Use Types Packs/Day Years Used Date Smoking Tobacco: Never Smokeless Tobacco: Current Chew Alcohol Use Standard Drinks/Week Comments Yes 0 (1 standard drink = 0.6 oz pure alcohol) social. no alcohol in house; 3 beers with sports. Sex and Gender Information Value Date Recorded Sex Assigned at Male 12/30/2021 8:08 AM CDT Legal Sex Male 3:36 AM PRUNER Gender Identity Male 01/01/2021 4:50 PM CDT Sexual Orientation Straight 01/01/2021 4: 50 PM CDT documented as of this encounter Plan of Treatment Not on file documented as of this encounter Visit Diagnoses Not on filedocumented in this encounter Care Teams Label Maker Relationship Specialty Start Date End Date Kassandra Diaz MD PCP - General Family Practice 06/12/17 09/22/19 Kassandra Diaz MD PCP - Assigned PCP 05/11/17 06/26/18 Lon Kirk PA-C [address] [place] [address] PCP - General Physician Alignment Mechanic 09/23/19 Kassandra Diaz MD Assigned PCP 05/11/17 03/30/19 Lon Kirk [place]-C [address] [place] [address] Assigned PCP 03/31/19 Cristina Goel OD [facility] [place] [address] Assigned Surgical Provider 03/14/21 09/17/21 Albino Lou PA-C [address] [place] [address] Assigned Musculoskeletal Provider 06/25/22 05/17/23 Ortiz Carvajal MD [address] [place] [address] Assigned Heart and Vascular Provider 06/25/22 12/14/23 Albino Lou PA-C [address] [facility] [place] [address] Assigned Neuroscience Provider 05/18/23 01/14/24 Cristina Goel OD [address] [facility] [place] [address] MD Ophthalmology 02/12/24 Cristina Goel OD [address] [facility] [place] [address] Assigned Surgical Provider 04/15/24 documented as of this encounter
[2024-05-11 12:40] VITALS: BP 139/88; PULSE 78; RESP 18; TEMP 36.1; O2SAT 98; BMI 30.6
--- NOTE | 2024-05-11 13:01 | CRLHL7_ITS ---
For Patients: As a result of the Century Cures Act, medical imaging exams and procedure reports are released immediately into your electronic medical record. You may view this report before your referring provider. If you have questions, please contact your health care provider. INDICATION: Dizziness. Nausea. COMPARISON: None. TECHNIQUE: Noncontrast CT head. FINDINGS: Normal brain parenchymal morphology. No acute intracranial hemorrhage, acute infarct, mass effect, or fracture. No midline shift. No abnormal ventricular dilatation. Normal calvarium and skull base. Visualized paranasal sinuses mastoid air cells are clear. Normal orbits bilaterally. IMPRESSION: 1. No acute intracranial abnormality. 2. Normal brain parenchymal morphology. Please note that all CT scans at this facility use dose modulation, iterative reconstruction, and/or weight-based dosing when appropriate to reduce radiation dose to as low as reasonably achievable. Dictated by George Peraza MD @ 05/11/2024 1:21:21 PM (Electronically Signed)
--- NOTE | 2024-05-11 13:02 | ED.GENADULT ---
HPI - General Adult General Chief complaint: Weakness Stated complaint: Lightheaded, clammy, eval'd by EMS Time Seen by Provider: 05/11/24 12:55 History of Present Illness HPI narrative: Patient is a 58-year-old gentleman who has had 2 episodes of presyncope the last several days. On 2 days ago the patient felt very lightheaded was having palpitations. He came to the emergency room here in [place] but there was long delay and the patient left without being seen. X-ray done at that time was read as normal. Patient has been overall his usual state of health but has been having some intermittent lightheadedness presyncopal symptoms with no actual syncope. He feels like his heart is racing at times and is somewhat short of breath. He has had no nausea no vomiting no fevers no chills no changes bowel or bladder no rashes no bruising no focal neurologic complaints. He has had no symptoms previously. Patient is diabetic takes metformin. His diet has been per usual recently. Related Data Home Medications ?Medication ?Instructions ?Recorded ?Confirmed atorvastatin 10 mg tablet 10 mg PO DAILY 05/09/24 05/09/24 losartan 100 mg tablet 100 mg PO DAILY 05/09/24 05/09/24 metformin 500 mg tablet,extended 1,000 mg PO BID 05/09/24 05/09/24 release 24 hr Allergies Allergy/AdvReac Type Severity Reaction Status Date / Time No Known Drug Allergies Allergy Verified 05/11/24 12:39 Review of Systems Status of ROS: Reports: 10 or more systems reviewed and unremarkable except as noted in History and below PFSH PFS Social History Smoking Status: Never smoker Do you use any of these nicotine containing products: Smokeless Tobacco How often do you have a drink containing alcohol: 2-3 times a week How many standard drinks containing alcohol do you have on a typical day: 3 or 4 AUDIT-C Alcohol total score: 4 Non-prescribed substance use: denies use service: No Exam Narrative: Exam Narrative: EXAM GENERAL: Patient appears comfortable and well. EYES: No scleral icterus. LYMPH: No supraclavicular or cervical lymphadenopathy. SKIN: Visible skin seen during exam normal or with benign process only. EXT: No dependent lower extremity pedal edema. HEART: Regular rate and rhythm with no murmurs, rubs, or gallops. LUNGS: Clear to auscultation bilaterally with no crackles or wheezes. ABD: Soft, non tender, non distended. PSYCH: Good eye contact, speech is not pressured. Neurologic cranial nerves 2-12 grossly Const: Vital Signs, click to edit/add: Vital Signs - 24 hr 05/11/24 12:40 05/11/24 13:57 Temperature 96.9 F L Pulse Rate 70 Pulse Rate [Pulse Oximeter] 78 Respiratory Rate 18 16 Blood Pressure 117/76 Blood Pressure [Ri ght Upper Arm] 139/88 Pulse Oximetry 98 95 Oxygen Delivery Me thod Room Air Course Course ED Course: I did order CBC comprehensive metabolic panel CT of the head EKG troponin D-dimer. Will follow up based on those results will also swab for COVID influenza and RSV. Vital Signs Vital signs: Initial Vital Signs Temperature 96.9 F L 05/11/24 12:40 Temperature Source Temporal Artery Scan 05/11/24 12:40 Pulse Rate 78 05/11/24 12:40 Respiratory Rate 18 05/11/24 12:40 Blood Pressure 139/88 05/11/24 12:40 Blood Pressure Mean 105 05/11/24 12:40 Blood Pressure Position Sitting 05/11/24 12:40 Pulse Oximetry 98 05/11/24 12:40 Oxygen Delivery Method Room Air 05/11/24 12:40 Vital Signs Temperature 96.9 F L 05/11/24 12:40 Pulse Rate 78 05/11/24 12:40 Respiratory Rate 18 05/11/24 12:40 Blood Pressure 139/88 05/11/24 12:40 Pulse Oximetry 98 05/11/24 12:40 Oxygen Delivery Method Room Air 05/11/24 12:40 Temperature 96.9 F L 05/11/24 12:40 Pulse Rate 70 05/11/24 13:57 Respiratory Rate 16 05/11/24 13:57 Blood Pressure 117/76 05/11/24 13:57 Pulse Oximetry 95 05/11/24 13:57 Oxygen Delivery Method Room Air 05/11/24 12:40 Medical Decision Making MDM Narrative Medical decision making narrative: Patient presents with presyncope and had a very thorough evaluation. His normal exam and normal vital signs. EKG upon my review shows normal sinus rhythm no acute ST or T-wave changes. Patient has normal CBC electrolytes negative D-dimer negative troponin negative head CT. This time I did offer reassurance. Differential diagnosis includes but not limited to vertigo eustachian tube dysfunction cardiac arrhythmia seizure disorder anxiety. Did recommend that he have a Zio patch placed his primary care appointment which is in 3 days. In the meantime limited activity at home and follow-up as needed. Lab Data Labs: Lab Results 05/11/24 05/11/24 Range/Units 13:20 Unknown WBC 7.03 (4.50-11.00) K/uL RBC 4.46 (4.30-5.90) m/uL Hgb 14.8 (13.5-17.5) gm/dL Hct 42.7 (37.0-53.0) % MCV 96 (80-100) fL MCH 33 (26-34) pg MCHC 35 (32-36) gm/dL RDW Coeff of Ivory 11.9 (11.5-15.5) % Plt Count 158 (140-440) K/uL Neut % (Auto) 65.7 (42.0-72.0) % Lymph % (Auto) 21.6 (20-44) % Dewitt % (Auto) 9.5 (0.0-11.0) % Eos % (Auto) 2.4 (0.0-7.0) % Baso % (Auto) 0.7 (0.0-3.0) % Neut # (Auto) 4.61 (1.7-7.0) K/uL Lymph # (Auto) 1.52 (0.90-2.90) K/uL Dewitt # (Auto) 0.70 (0.00-0.90) K/UL Eos # (Auto) 0.17 (0.00-0.50) K/uL Baso # (Auto) 0.05 (0.00-0.30) K/uL Abs Immat Gran (auto) 0.01 (0.00-0.30) K/uL Imm/Tot Granulo (auto) 0.1 % D-Dimer Quant (PE/DVT) < 0.27 (0.00-0.50) ug/ml Sodium 135 (135-149) mmol/L Potassium 4.3 (3.6-5.1) mmol/L Chloride 99 (96-114) mmol/L Carbon Dioxide 28 (20-32) mmol/L Anion Gap 8 (7-15) mEq/L BUN 20 (7-30) mg/dL Creatinine 0.9 (0.5-1.5) mg/dL Estimated Creat Clear 109.54 Estimated GFR 100 ml/min Glucose 259 H (60-115) mg/dL Calcium 9.5 (8.4-10.6) mg/dL Total Bilirubin 0.7 (0.1-1.5) mg/dL AST 46 H (12-35) U/L ALT 56 H (4-50) U/L Alkaline Phosphatase 47 (40-150) U/L Troponin I < 0.01 L (0.01-0.04) ng/mL Total Protein 7.4 (6.0-8.3) g/dL Albumin 4.6 (3.3-5.0) g/dL Urine Color Yellow (Yellow) Urine Appearance Clear (Clear) Urine pH 6.5 (5.0-8.5) Ur Specific [place] 1.020 (1.000-1.030) Urine Protein Negative (Negative) Urine Glucose (UA) Trace A (Negative) Urine Ketones 1+ A (Negative) Urine Blood Negative (Negative) Urine Nitrite Negative (Negative) Urine Bilirubin Negative (Negative) Urine Urobilinogen 0.2 (0.2-1.0) Ur Leukocyte Esterase Negative (Negative) SARS-CoV-2 (PCR) Negative SARS-CoV-2 (Negative) Influenza Type A (PCR) Negative PCR FLU A (Negative) Influenza Type B (PCR) Negative PCR FLU B (Negative) RSV (PCR) Negative PCR RSV (Negative) Discharge Plan Discharge Clinical Impression: Pre-syncope Patient Disposition: Home, Self-Care Condition: Stable Instructions: Dizziness (ED) Additional Instructions: Return if symptoms worsen. Limit activity to activities of daily living. Follow-up with your doctor as scheduled this week and request a Zio patch Continue current medication. Activity Level: No Restrictions Discharge Diet: Regular Prescriptions: No Action atorvastatin 10 mg tablet 10 mg PO DAILY losartan 100 mg tablet 100 mg PO DAILY metformin 500 mg tablet extended release 24 hr 1,000 mg PO BID Follow Up/Referrals: Provider,Not a Local [Primary Care Provider] - Stand Alone Forms: [employer] Info Instructions
[2024-05-11 13:28] LABS: Basophils Absolute Auto 0.05 K/uL (0.00-0.30); Basophils Percent Auto 0.7 % (0.0-3.0); Eosinophils Absolute Auto 0.17 K/uL (0.00-0.50); Eosinophils Percent Auto 2.4 % (0.0-7.0); Hematocrit 42.7 % (37.0-53.0); Hemoglobin* 14.8 gm/dL (13.5-17.5); Immature Granulocytes Abs Auto 0.01 K/uL (0.00-0.30); Immature Granulocytes Pct Auto 0.1 %; Lymphocytes Absolute Auto 1.52 K/uL (0.90-2.90); Lymphocytes Percent Auto 21.6 % (20-44); Mean Corpuscular HGB Conc 35 gm/dL (32-36); Mean Corpuscular Hemoglobin 33 pg (26-34); Mean Corpuscular Volume 96 fL (80-100); Monocytes Percent Auto 9.5 % (0.0-11.0); Neutrophils Absolute Auto 4.61 K/uL (1.7-7.0); Neutrophils Percent Auto 65.7 % (42.0-72.0); Platelet Count* 158 K/uL (140-440); RDW Coefficient of Variation % 11.9 % (11.5-15.5); Red Blood Count 4.46 m/uL (4.30-5.90); White Blood Count* 7.03 K/uL (4.50-11.00)
[2024-05-11 13:37] LABS: Appearance Urine Clear (Clear); Bilirubin Urine Negative (Negative); Blood Urine Negative (Negative); Color Urine Yellow (Yellow); Glucose Urine Trace (Negative); Ketones Urine 1+ (Negative); Leukocyte Esterase Urine Negative (Negative); Nitrite Urine Negative (Negative); Protein Urine Negative (Negative); Urobilinogen Urine 0.2 (0.2-1.0); pH Urine 6.5 (5.0-8.5)
[2024-05-11 13:41] LABS: Albumin* 4.6 g/dL (3.3-5.0); Chloride* 99 mmol/L (96-114); Potassium* 4.3 mmol/L (3.6-5.1); Sodium* 135 mmol/L (135-149)
--- OUTSIDE RECORDS SUMMARY | 2024-05-11 13:42 | XMS_ITS | Continuity of Care Document ---
Author Name [facility] Address Unknown Organization Unknown Address Unknown Encounters FILTER APPLIED:Only known Encounters with Admission Date within the last 5 years Encounter Location Admission Discharge Billing Code [employer] Specialist Silvana jones Outpatient [facility]
[2024-05-11 13:43] LABS: Anion Gap 8 mEq/L (7-15); Bilirubin Total* 0.7 mg/dL (0.1-1.5); Carbon Dioxide* 28 mmol/L (20-32); Creatinine* 0.9 mg/dL (0.5-1.5); Est. Creatinine Clearance* 109.54; Estimated Glomerular Filt Rate 100 ml/min
[2024-05-11 13:44] LABS: Alanine Aminotransferase* 56 U/L (4-50); Alkaline Phosphatase* 47 U/L (40-150); Aspartate Amino Transferase* 46 U/L (12-35); Blood Urea Nitrogen* 20 mg/dL (7-30); Calcium* 9.5 mg/dL (8.4-10.6); Glucose* 259 mg/dL (60-115); Total Protein* 7.4 g/dL (6.0-8.3)
[2024-05-11 13:51] LABS: Slide Review Reflex No
[2024-05-11 13:57] VITALS: BP 117/76; PULSE 70; RESP 16; O2SAT 95
[2024-05-11 14:03] LABS: D Dimer Quantitative* < 0.27 ug/ml (0.00-0.50); Troponin I* < 0.01 ng/mL (0.01-0.04)
[2024-05-11 14:07] LABS: PCR FLU A Negative PCR FLU A (Negative); PCR FLU B Negative PCR FLU B (Negative); PCR RSV Negative PCR RSV (Negative); SARS PCR* Negative SARS-CoV-2 (Negative)
== END 2024-05-11 14:37 | disposition home or self-care (01) ==
PROVIDERS: Emergency Provider Internal Medicine
DX: R55 Syncope and collapse (principal)
CPT/HCPCS: 36415; 70450; 80053; 81003; 84484; 85025; 85379; 87631; 93005; 99283; 99284; 99285